=== PATIENT | female | born 1995 | race Caucasian/White ===

== ENCOUNTER 2023-08-22 09:45 | Inpatient (IN) | payer BC, SELFPAY ==
[2023-08-22] VITALS (17 sets, daily range): BP systolic 105–149; BP diastolic 60–96; PULSE 94–116; RESP 16–21; TEMP 36.4–37.1; O2SAT 96–100; BMI 53.2
--- NOTE | 2023-08-22 07:53 | PCM.HP.BLA ---
History and Physical Date of Admission: 08/22/23 DATE OF SERVICE: August 18, 2023 ? PROBLEM: breech presentation, 39 week gestation, single IUP ? DIAGNOSIS: as above ? PAST SURGICAL HISTORY: PAST SURGICAL HISTORYExpand by Default PAST SURGICAL HISTORY Procedure Laterality Date ? PAST SURGICAL HISTORY OF ? ? ? wisdom teeth ? ? PAST MEDICAL HISTORY: PAST MEDICAL HISTORYExpand by Default PAST MEDICAL HISTORY Diagnosis Date ? NEGATIVE MEDICAL HISTORY ? ? Obesity, unspecified ? ? ? SUBJECTIVE: pt doing well and offers no complaints today. No regular ctx, vb, lof. Good FM ? SOCIAL HISTORY: SOCIAL HISTORYExpand by Default Social History ? Tobacco Use ? Smoking status: Never ? Smokeless tobacco: Never Vaping Use ? Vaping Use: Never used Substance Use Topics ? Alcohol use: No ? Drug use: No ? ? Allergies: Penicillins Other: See Comments Comment:Unknown - allergy as baby ? Current Outpatient Medications on File Prior to Visit Medication Sig ? ferrous sulfate (IRON ORAL) Take by mouth. ? ZINC ORAL Take by mouth. ? VIT [id number] ORAL Take by mouth. ? No current facility-administered medications on file prior to visit. ? OBJECTIVE: ? VITALS: BP 125/83 Pulse 101 Wt (!) 321 lb 9.6 oz (145.9 kg) LMP 11/22/2022 (Exact Date) SpO2 98% BMI 51.68 kg/m? ? HEENT: Normocephalic, atraumatic, Mucus membranes moist without lesions. ? NECK: Soft and Supple. No adenopathy , thyromegaly or bruits. ? SKIN: No lesions. ? CHEST: No increased resp effort. ? HEART: Regular rate. ? ABDOMEN: Soft, non-tender, non-distended, no masses, no hepatosplenomegaly. ? LOWER EXTREMITIES: No palpable cords and no skin changes. ? ? ? ASSESSMENT: pre op, 39 week gestation, single IUP, breech presentation ? PLAN: 1) Discussed r/b/a section for breech presentation. The rationale for the proposed surgery was discussed in addition to risks, benefits, and alternatives. General pre- and post-operative care was reviewed. Questions were answered. After discussion, the patient indicated a desire to proceed with the planned surgery. ? Nelida Maxwell, DO Assessment & Plan Assessment/Plan (1) 39 weeks gestation of : (2) Breech presentation: (3) Obesity affecting : (4) Two vessel umbilical cord:
--- OUTSIDE RECORDS SUMMARY | 2023-08-22 10:29 | XMS RPT_ITS | CCD ---
Author Name Unknown Address [address] [place] [address] Organization [facility] Care Team Providers Care Machine Hose Cutter Name Role Phone Pcp, No Primary Care Provider Unavailabl e Unavailable Primary Care Provider Unavailabl e Unavailable Primary Care Provider Unavailabl e CAL, ABA L Referring Unavailable CAL, ABA L Referring Unavailable WISWELL, STEPAN Attending Unavailable PLOTTS, KARINA Referring Unavailable CAL, ABA L Attending Unavailable PLOTTS, KARINA Referring Unavailable PLOTTS, KARINA Referring Unavailable CAL, ABA L Referring Unavailable WISWELL, STEPAN Attending Unavailable CAL, ABA L Referring Unavailable CAL, ABA L Referring Unavailable CAL, ABA L Attending Unavailable CAL, ABA L Referring Unavailable WISWELL, STEPAN Attending Unavailable PLOTTS, KARINA Referring Unavailable JONATHAN RODRIGUEZ Attending Unavail able WISSTEPAN BARNES Attending Unavailable CAL, ABA L Referring Unavailable CAL, ABA L Attending Unavailable MAT GUIDO Attending Unavailable PLOTTS, KARINA Attending Unavailable CLA, ABA L Referring Unavailable PLOTTS, KARINA Referring Unavailable PLOTTS, KARINA Attending Unavailable PLOTTS, KARINA Referring Unavailable CAL, ABA L Referring Unavailable WISWELL, STEPAN Attending Unavailable CAL, ABA L Referring Unavailable CAL, ABA L Referring Unavailable JONATHAN RODRIGUEZ Attending Unavail able WISWELL, STEPAN Attending Unavailable WISWELL, STEPAN Referring Unavailable Allergies Allergy Classification Reported Allergen(s) Allergy Type Date of Onset Reaction(s) Facility (2 sources) Penicillins; Translations: [PENICILLINS] Propensity to adverse reactions 6 [facility] Work Phone: (20 sources) Penicillins Propensity to adverse reactions 6 Other: See Comments [facility] Work Phone: Medications Current Medications Medication Drug Class(es) Dates Sig (Normalized) Sig (Original) ondansetron 4 mg disintegrating oral tablet (1 source) Serotonin-3 Receptor Antagonist Start: 10-20-2021 End: 10-25-2021 take 1 tablet by mouth every twelve hours as needed ondansetron orally disintegrating (ZOFRAN ODT) 4 mg disintegrating tablet Take 1 tablet by mouth every 12 hours as needed for nausea/vomiting for up to 5 days. 10 tablet 0 10/20/2021 10/25/2021 Active Completed/Discontinued Medications Medication Drug Class(es) Dates Sig (Normalized) Sig (Original) Ethinyl Estradiol / Ferrous fumarate / Norethindrone (7 sources) Estrogen Start: 04-01-2022 End: 02-18-2023 take 1 tablet by mouth once daily, then take 0.05 tablet by mouth once Norethin Sam-Eth Estrad-FE (LOESTRIN FE 07/19) 1 mg-20 mcg (21)/75 mg (7) per tablet Indications: Encounter for initial prescription of contraceptive pills Take 1 tablet by mouth once daily. 28 tablet 11 04/01/2022 02/18/2023 Discontinued Problems Active Problems Problem Classification Problem Date Documented Da te Episodic/Chronic Bacterial infection; unspecified site (4 sources) Bacteria present; Translations: [Streptococcus, group B, as the cause of diseases classified elsewhere] Onset: 08-07-2023 08-07-2023 Episodic Cardiac and circulatory congenital anomalies (5 sources) Single umbilical artery; Translations: [Congenital absence and hypoplasia of umbilical artery] Onset: 07-07-2023 05-12-2023 Chronic Contraceptive and procreative management (7 sources) Patient encounter status; Translations: [Encounter for initial prescription of contraceptive pills] Episodic Immunizations and screening for infectious disease (20 sources) Requires vaccination; Translations: [Encounter for immunization] Onset: 02-01-2009 02-01-2009 Episodic Malposition; malpresentation (5 sources) Breech presentation; Translations: [Maternal care for breech presentation, not applicable or unspecified] Onset: 08-11-2023 08-11-2023 Episodic Other complications of (20 sources) Obesity; Translations: [Obesity complicating , unspecified trimester] Onset: 01-16-2023 01-16-2023 Chronic Other complications of (2 sources) Maternal obesity complicating , childbirth and the puerperium, antepartum; Translations: [Obesity complicating , second trimester] 04-14-2023 Chronic Other complications of (2 sources) Obesity complicating , third trimester; Translations: [Obesity complicating , childbirth, or the puerperium, antepartum condition or complication] Onset: 08-12-2023 06-09-2023 Chronic Other complications of (1 source) Obesity complicating , second trimester; Translations: [Obesity affecting in second trimester, unspecified obesity type] Onset: 07-07-2023 Chronic Other complications of (1 source) Obesity complicating , unspecified trimester; Translations: [Obesity in , antepartum] Onset: 01-16-2023 Chronic Other complications of (7 sources) on oral contraceptive; Translations: [Supervision of other high risk pregnancies, unspecified trimester] Onset: 01-16-2023 01-16-2023 Episodic Other complications of (3 sources) High risk ; Translations: [Supervision of other high risk pregnancies, third trimester] 06-09-2023 Episodic Other complications of (1 source) Supervision of other high risk pregnancies, third trimester; Translations: [Supervision of other high risk pregnancies, third trimester] Onset: 07-07-2023 Episodic Polyhydramnios and other problems of amniotic cavity (8 sources) Polyhydramnios; Translations: [Polyhydramnios, third trimester, not applicable or unspecified] Onset: 07-10-2023 07-10-2023 Episodic Residual codes; unclassified (2 sources) Gestation period, 9 weeks; Translations: [9 weeks gestation of ] 01-27-2023 Episodic Residual codes; unclassified (1 source) Gestation period, 12 weeks; Translations: [12 weeks gestation of ] 02-18-2023 Episodic Residual codes; unclassified (2 sources) Gestation period, 20 weeks; Translations: [20 weeks gestation of ] 04-14-2023 Episodic Residual codes; unclassified (2 sources) Gestation period, 24 weeks; Translations: [24 weeks gestation of ] 05-12-2023 Episodic Residual codes; unclassified (1 source) Gestation period, 28 weeks; Translations: [28 weeks gestation of ] 06-09-2023 Episodic Residual codes; unclassified (1 source) Gestation period, 36 weeks; Translations: [36 weeks gestation of ] 08-11-2023 Episodic Residual codes; unclassified (1 source) Gestation period, 37 weeks; Translations: [37 weeks gestation of ] 08-12-2023 Episodic Residual codes; unclassified (1 source) 32 weeks gestation of ; Translations: [32 weeks gestation of ] Onset: 07-07-2023 Episodic Residual codes; unclassified (1 source) 24 weeks gestation of ; Translations: [24 weeks gestation of ] Onset: 06-09-2023 Episodic Past or Other Problems Problem Classification Problem Date Documented Da te Episodic/Chronic Other complications of (15 sources) Single umbilical artery; Translations: [Supervision of other high risk pregnancies, unspecified trimester] Onset: 01-16-2023 04-14-2023 Episodic Other complications of (1 source) Supervision of other high risk pregnancies, unspecified trimester; Translations: [Two vessel umbilical cord, antepartum] Onset: 04-14-2023 Episodic Other nutritional; endocrine; and metabolic disorders (20 sources) Childhood obesity; Translations: [Body mass index (BMI) pediatric, greater than or equal to 95th percentile for age] Onset: 01-25-2010 01-25-2010 Episodic Other and delivery including normal (5 sources) First trimester ; Translations: [Encounter for supervision of normal first , first trimester] Onset: 02-18-2023 01-27-2023 Episodic Other screening for suspected conditions (not mental disorders or infectious disease) (2 sources) Cancer cervix screening status; Translations: [Encounter for screening for malignant neoplasm of cervix] Onset: 05-12-2023 Episodic Residual codes; unclassified (1 source) 16 weeks gestation of ; Translations: [16 weeks gestation of ] Onset: 03-17-2023 Episodic Residual codes; unclassified (1 source) 9 weeks gestation of ; Translations: [9 weeks gestation of ] Onset: 02-18-2023 Episodic Residual codes; unclassified (1 source) 12 weeks gestation of ; Translations: [12 weeks gestation of ] Onset: 02-18-2023 Episodic Results Test Name Value Interpretation Reference Range Facil ity Vital Signs Date Time Vital Sign Value Performing Clinician Faci lity 08-12-2023 13:55-0500 Body weight 146.06 kg Aba Mccall MD Work Phone: [facility] 08-12-2023 13:55-0500 Diastolic blood pressure 82 mm[Hg] Aba Mccall MD Work Phone: [facility] 08-12-2023 13:55-0500 Systolic blood pressure 132 mm[Hg] Aba Mccall MD Work Phone: [facility] 08-04-2023 13:51-0500 Body weight 143.61 kg Stepan Maxwell MD Work Phone: [facility] 08-04-2023 13:51-0500 Diastolic blood pressure 82 mm[Hg] Stepan Maxwell MD Work Phone: [facility] 08-04-2023 13:51-0500 Systolic blood pressure 120 mm[Hg] Stepan Maxwell MD Work Phone: [facility] 06-09-2023 09:59-0500 Body weight 141.7 kg Aba Mccall MD Work Phone: [facility] 06-09-2023 09:59-0500 Diastolic blood pressure 78 mm[Hg] Aba Mccall MD Work Phone: [facility] 06-09-2023 09:59-0500 Systolic blood pressure 120 mm[Hg] Aba Mccall MD Work Phone: [facility] 05-12-2023 14:51-0500 Body weight 139.53 kg Aba Mccall MD Work Phone: [facility] 05-12-2023 14:51-0500 Diastolic blood pressure 80 mm[Hg] Aba Mccall MD Work Phone: [facility] 05-12-2023 14:51-0500 Systolic blood pressure 120 mm[Hg] Aba Mccall MD Work Phone: [facility] 04-14-2023 11:13-0400 Body weight 135.17 kg Jonathan Reynoso MD Work Phone: [facility] 04-14-2023 11:13-0400 Diastolic blood pressure 76 mm[Hg] Jonathan Reynoso MD Work Phone: [facility] 04-14-2023 11:13-0400 Systolic blood pressure 126 mm[Hg] Jonathan Reynoso MD Work Phone: [facility] 02-18-2023 15:11-0400 Body weight 134.72 kg Aba Mccall MD Work Phone: [facility] 02-18-2023 15:11-0400 Diastolic blood pressure 78 mm[Hg] Aba Mccall MD Work Phone: [facility] 02-18-2023 15:11-0400 Systolic blood pressure 124 mm[Hg] Aba Mccall MD Work Phone: [facility] 01-27-2023 08:51-0400 Body weight 133.81 kg Karina Moreno CHARM FILTER OPERATOR HELPER.CNM Work Phone: [facility] 01-27-2023 08:51-0400 Diastolic blood pressure 76 mm[Hg] Karina Plotts CHARM FILTER OPERATOR HELPER.CNM Work Phone: [facility] 01-27-2023 08:51-0400 Systolic blood pressure 122 mm[Hg] Karina Plotts CHARM FILTER OPERATOR HELPER.CNM Work Phone: [facility] 05-06-2022 10:58-0500 Body weight 130.91 kg Stepan Maxwell MD Work Phone: [facility] 05-06-2022 10:58-0500 Diastolic blood pressure 80 mm[Hg] Stepan Maxwell MD Work Phone: [facility] 05-06-2022 10:58-0500 Systolic blood pressure 120 mm[Hg] Stepan Maxwell MD Work Phone: [facility] 04-01-2022 09:23-0400 Body height 168 cm Stepan Maxwell MD Work Phone: [facility] 04-01-2022 09:23-0400 Body weight 132 kg Stepan Maxwell MD Work Phone: [facility] 04-01-2022 09:23-0400 Diastolic blood pressure 80 mm[Hg] Stepan Maxwell MD Work Phone: [facility] 04-01-2022 09:23-0400 Systolic blood pressure 120 mm[Hg] Stepan Maxwell MD Work Phone: [facility] Encounters Encounter Date Encounter Type Care Provider Facility Start: 08-18-2023 End: 08-18-2023 ambulatory ABA MCCALL Facility:[facility] Start: 08-18-2023 Telephone encounter Stepan jones MD Work Phone: OB/Gynecology Procedures Date Procedure Procedure Detail Performing Clinician Start: 08-12-2023 URINE OB DIP B/O Fouzia Mccall MD Work Phone: Start: 08-04-2023 Iadna streptococcus group b amplified probe tq Stepan Maxwell MD Work Phone: Start: 08-04-2023 URINE OB DIP B/O Stepan franco MD Work Phone: Start: 08-04-2023 Us preg uterus after 1st trimest 06/30 gestation Aba Mccall MD Work Phone: Start: 06-09-2023 Antibody screen ABA MCCALL Plan of Treatment Date Care Activity Detail Author Start: 06-09-2033 Urine microalbumin profile DTaP,Tdap,Td Vaccine (8 - Td or Tdap) [facility] Start: 04-01-2025 PAP TESTING PAP TESTING [facility] Start: 04-01-2025 Screening for malign ant neoplasm of cervix Pap Testing [facility] Start: 07-04-2023 RSV Vaccine (1 - Ris k 1-dose series) RSV Vaccine (1 - Risk 1-dose series) [facility] Start: 06-30-2023 Depression Assessment Depression Ass essment [facility] Start: 06-11-2023 End: 09-10-2023 CBC W Auto Differential panel - Blood CBC + DIFF Lab Routine 24 weeks gestation of Two vessel umbilical cord, antepartum Obesity in , antepartum Expected: 06/11/2023 (Approximate), Expires: 09/10/2023 [facility] Work Phone: Immunizations Immunization Date Immunization Notes Care Provider Jasmina jovel 07-07-2023 respiratory syncytia l virus (RSV) vaccine, bivalent (ABRYSVO) Ob Ultrasound Work Phone: [facility] 06-09-2023 tetanus toxoid, redu franko diphtheria toxoid, and acellular pertussis vaccine, adsorbed Aba Mccall MD Work Phone: [facility] 05-12-2023 influenza, injectabl e, quadrivalent, contains preservative Aba Mccall MD Work Phone: [facility] 06-03-2022 Human Papillomavirus 9-valent vaccine Karina Moreno CHARM FILTER OPERATOR HELPER.CNM Work Phone: [facility] 04-01-2022 Human Papillomavirus 9-valent vaccine Stepan Maxwell MD Work Phone: [facility] 01-11-2011 tetanus toxoid, redu franko diphtheria toxoid, and acellular pertussis vaccine, adsorbed Gracy Hager CHARM FILTER OPERATOR HELPER.PROCESS CONTROLS TECHNICIAN Work Phone: [facility] Work Phone: 01-25-2010 varicella virus vaccine Jaiden Hager CHARM FILTER OPERATOR HELPER.PROCESS CONTROLS TECHNICIAN Work Phone: [facility] 02-01-2009 meningococcal polysaccharide vaccine (MPSV4) Gracy Hager CHARM FILTER OPERATOR HELPER.PROCESS CONTROLS TECHNICIAN Work Phone: [facility] Work Phone: 02-01-2009 varicella virus vaccine Jaiden julius Hager CHARM FILTER OPERATOR HELPER.PROCESS CONTROLS TECHNICIAN Work Phone: [facility] Work Phone: 12-23-2000 diphtheria, tetanus toxoids and acellular pertussis vaccine Gracy Hager CHARM FILTER OPERATOR HELPER.PROCESS CONTROLS TECHNICIAN Work Phone: [facility] Work Phone: 12-23-2000 measles, mumps and rubella virus vaccine Gracy Hager CHARM FILTER OPERATOR HELPER.PROCESS CONTROLS TECHNICIAN Work Phone: [facility] Work Phone: 12-23-2000 poliovirus vaccine, inactivated Gracy Alley CHARM FILTER OPERATOR HELPER.PROCESS CONTROLS TECHNICIAN Work Phone: [facility] Work Phone: 11-19-1996 diphtheria, tetanus toxoids and acellular pertussis vaccine Gracy Alley CHARM FILTER OPERATOR HELPER.PROCESS CONTROLS TECHNICIAN Work Phone: [facility] Work Phone: 11-19-1996 poliovirus vaccine, inactivated Gracy Alley CHARM FILTER OPERATOR HELPER.PROCESS CONTROLS TECHNICIAN Work Phone: [facility] Work Phone: 08-17-1996 haemophilus influenz ae type b vaccine, HbOC conjugate Gracy Alley CHARM FILTER OPERATOR HELPER.[facility] Work Phone: [facility] Work Phone: 08-17-1996 measles, mumps and rubella virus vaccine Gracy Alley CHARM FILTER OPERATOR HELPER.[facility] Work Phone: [facility] Work Phone: 1995 diphtheria, tetanus toxoids and pertussis vaccine Gracy Alley CHARM FILTER OPERATOR HELPER.[facility] Work Phone: [facility] Work Phone: 1995 haemophilus influenz ae type b vaccine, HbOC conjugate Gracy Alley CHARM FILTER OPERATOR HELPER.[facility] Work Phone: [facility] Work Phone: 1995 hepatitis B vaccine, adult dosage Gracy Alley CHARM FILTER OPERATOR HELPER.PROCESS CONTROLS TECHNICIAN Work Phone: [facility] Work Phone: 1995 diphtheria, tetanus toxoids and pertussis vaccine Gracy Alley CHARM FILTER OPERATOR HELPER.[facility] Work Phone: [facility] Work Phone: 1995 haemophilus influenz ae type b vaccine, HbOC conjugate Gracy Alley CHARM FILTER OPERATOR HELPER.[facility] Work Phone: [facility] Work Phone: 1995 poliovirus vaccine, inactivated Gracy Alley CHARM FILTER OPERATOR HELPER.PROCESS CONTROLS TECHNICIAN Work Phone: [facility] Work Phone: 1995 diphtheria, tetanus toxoids and pertussis vaccine Gracywarren Riverak CHARM FILTER OPERATOR HELPER.PROCESS CONTROLS TECHNICIAN Work Phone: [facility] Work Phone: 1995 haemophilus influenz ae type b vaccine, HbOC conjugate Gracy Alley CHARM FILTER OPERATOR HELPER.PROCESS CONTROLS TECHNICIAN Work Phone: [facility] Work Phone: 1995 poliovirus vaccine, inactivated Gracy Alley CHARM FILTER OPERATOR HELPER.PROCESS CONTROLS TECHNICIAN Work Phone: [facility] Work Phone: 1995 hepatitis B vaccine, adult dosage Gracy Alley CHARM FILTER OPERATOR HELPER.PROCESS CONTROLS TECHNICIAN Work Phone: [facility] Work Phone: 1995 hepatitis B vaccine, adult dosage Gracy Alley CHARM FILTER OPERATOR HELPER.[facility] Work Phone: [facility] Work Phone: Payers Date Payer Category Payer Unknown [id number] 2021 Unknown [employer] [id number] 2021-Present [phone] [address] [place] [id number] [facility] [id number] 2021 Unknown [id number] Social History Date Type Detail Facility Start: 04-01-2022 Tobacco smoking stat [facility] Never smoked tobacco [facility] Work Phone: Start: 10-20-2021 End: 08-18-2023 Alcohol intake Current non-drinker of alcohol (finding) [facility] Start: 1995 Sex Assigned At Not on file [facility] Start: 10-12-2021 End: 05-06-2022 Exposure to SARS-CoV-2 (event) Not sure [facility] Work Phone: Start: 04-01-2022 Tobacco use and exposure Smokeless tobacco non-user [facility] Start: 1995 Sex Assigned At Female C [facility] Start: 01-16-2023 End: 08-18-2023 History of Social function [facility] Start: 01-16-2023 End: 08-18-2023 Tobacco use panel [facility] National Score (1-10 0), lower number is lower risk 66 [facility] Start: 01-16-2023 Education 17 [facility] Start: 12-06-2022 [facility] Start: 03-31-2022 Gender identity Identifies as female gender (finding) [facility] Start: 03-31-2022 Sexual orientation Heterosexual (fin walter) [facility] Goals Date Patient Goal Desired Activity /State Personal health goal Clinical Notes 10-25-2021 to 08-18-2023 Telephone Encounter - Gisele An LPN - 08/18/2023 1:41 PM ESTTelephone Encounter - Nithya Law RN - 08/18/2023 10:44 AM Aba Guerra MD - 08/12/2023 2:10 PM EST Note Date & Type Note Facility 08-18-2023 Miscellaneous Notes Patient notified Left message for patient to call office. Please let patient know her C/S on 08/22 is now at noon. Please have her arrive at 0930 to L&D. Nithya Law RN documented in this encounter [facility] 08-12-2023 Note HNO ID: [id number] Author: ABA MCCALL MD Service: ? Author Type: Physician Type: Progress Notes Filed: 08/12/2023 14:27 Note Text: NST SUMMARY PROVIDER ASSESSMENT AND INTERPRETATION Abahamida Friend is a 28 year old female, , who is at 37w4d with an FRANK of 08/29/2023, by Last Menstrual Period dating method. Indications for NST: Obesity Baseline: 135 Variability: Moderate Accelerations: Present 15 X 15 Decelerations: None Contractions: TOCO: None Interpretation: Category I and Reactive SIGNATURE: Aba Mccall MD [facility] 08-12-2023 History of Presen t illness Narrative NST SUMMARY PROVIDER ASSESSMENT AND INTERPRETATION Aba Friend is a 28 year old female, , who is at 37w4d with an FRANK of 08/29/2023, by Last Menstrual Period dating method. Indications for NST: Obesity Baseline: 135 Variability: Moderate Accelerations: Present 15 X 15 Decelerations: None Contractions: TOCO: None Interpretation: Category I and Reactive SIGNATURE: Aba Mccall MD documented in this encounter [facility] 08-12-2023 Miscellaneous Notes RR- VB No. LOF No. CTXS No. Movement: present. Other c/o: No. Medication list reviewed. Physical Exam See Flow Sheet Abd: soft, nontender, gravid Ext: edema: Trace A/P 37w4d Estimated Date of Delivery: 08/29/23 maternal obesity- BP stable, NST today. cont. kick counts Plans c/s for breech F/u in 1 week or prn. Aba Mccall M.D. documented in this encounter [facility] 08-12-2023 Aretha Vincent Ma - 08/12/2023 1:53 PM EST SEQUENTIAL SCREENINGS The [facility] offers sequential screenings for women who are interested in screenings for chromosomal abnormalities and certain defects during a . The sequential screen combines ultrasound and blood tests to determine the risk of chromosomal abnormalities, including Down's Syndrome (Trisomy 21) and Trisomy 18, as well as open neural tube defects including spina bifida. Ultrasound examination is performed between 11 weeks and 13 weeks gestational age. Blood tests are drawn after the ultrasound and again later in the between 15 and 21 weeks gestational age. Please let your physician know if you are interested in this testing. It will require an appointment with our windows deployment technician. This is not an ultrasound performed by a physician in our office during a routine visit. SIGNS AND SYMPTOMS OF LABOR 1. Contractions every 10 minutes or more often 2. Clear, pink, or brownish fluid (water) leaking from vagina 3. Feeling that baby is pushing down, pressure 4. Low, dull backache 5. Cramps that feel like a period 6. Cramps with or without diarrhea If you notice any of the above symptoms, contact our office at [phone] and ask to speak with a nurse. After hours, you can call doctors registry at [phone] OR call [facility] at [phone] and ask to have the doctor personal development coach paged. If you consider this an emergency, dial 9-1-9 or go to your nearest emergency department. NEED HELP? Are you dealing with a violent or abusive relationship? Are you a victim of rape or sexual assult? Call [facility] [place] ([place]) 24 hour Crisis Hotline: 285.401.5978 or 174-780-8971. MANUAL Your Guide to a Healthy manual is now on-line. Visit [email or web address] to download your free copy documented in this encounter [facility] 08-11-2023 Miscellaneous Notes SW- pt doing well. No pain, ctx, CHE, vision changes, vb, lof. Good FM PE: Gen- NAD, well appearing Abd- Obese, breech and engaged in pelvis See flowsheet A/p 36 wk gestation - Breech: Discussed r/b/a ECV and scheduled primary C/S. Patient and would like to consider options but she is wanting to get a scheduled at 39 weeks. Questions answered - Growth ultrasound today and final report pending - BPP 02/04 today - Cont weekly visits. Will work on scheduling C/S Stepan Maxwell DO documented in this encounter [facility] 08-04-2023 Miscellaneous Notes Anatomy ultrasound reviewed. No abnormalities identified. Follow up as clinically indicated. Please place copy in ob chart. Aba Mccall MD documented in this encounter [facility] 08-04-2023 Instructions Stepan Maxwell MD - 08/04/2023 1:46 PM EST [facility] SEQUENTIAL SCREENINGS The [facility] offers sequential screenings for women who are interested in screenings for chromosomal abnormalities and certain defects during a . The sequential screen combines ultrasound and blood tests to determine the risk of chromosomal abnormalities, including Down's Syndrome (Trisomy 21) and Trisomy 18, as well as open neural tube defects including spina bifida. Ultrasound examination is performed between 11 weeks and 13 weeks gestational age. Blood tests are drawn after the ultrasound and again later in the between 15 and 21 weeks gestational age. Please let your physician know if you are interested in this testing. It will require an appointment with our windows deployment technician. This is not an ultrasound performed by a physician in our office during a routine visit. SIGNS AND SYMPTOMS OF LABOR 1. Contractions every 10 minutes or more often 2. Clear, pink, or brownish fluid (water) leaking from vagina 3. Feeling that baby is pushing down, pressure 4. Low, dull backache 5. Cramps that feel like a period 6. Cramps with or without diarrhea If you notice any of the above symptoms, contact our office at [phone] and ask to speak with a nurse. After hours, you can call doctors registry at [phone] OR call [facility] at [phone] and ask to have the doctor personal development coach paged. If you consider this an emergency, dial [phone]- or go to your nearest emergency department. NEED HELP? Are you dealing with a violent or abusive relationship? Are you a victim of rape or sexual assult? Call [facility] ([place]) 24 hour Crisis Hotline: 901.862.6092 or 797-018-9933. MANUAL Your Guide to a Healthy manual is now on-line. Visit [email or web address] to download your free copy documented in this encounter [facility] 07-21-2023 Note HNO ID: [id number] Author: ABA MCCALL MD Service: ? Author Type: Physician Type: Progress Notes Filed: 07/21/2023 14:06 Note Text: NST SUMMARY PROVIDER ASSESSMENT AND INTERPRETATION Aba Friend is a 28 year old female, , who is at 34w3d with an FRANK of 08/29/2023, by Last Menstrual Period dating method. Indications for NST: Obesity and Polyhydramnios Baseline: 145 Variability: Moderate Accelerations: Present 15 X 15 Decelerations: None Contractions: TOCO: None Interpretation: Category I and Reactive SIGNATURE: Aba Mccall MD [facility] 07-16-2023 Note HNO ID: [id number] Author: JONATHAN RODRIGUEZ MD Service: ? Author Type: Physician Type: Progress Notes Filed: 07/16/2023 16:13 Note Text: NST SUMMARY PROVIDER ASSESSMENT AND INTERPRETATION Aba Friend is a 28 year old female, , who is at 33w5d with an FRANK of 08/29/2023, by Last Menstrual Period dating method. Indications for NST: Obesity Baseline: 145 Variability: Moderate Accelerations: Present 15 X 15 Decelerations: None Contractions: TOCO: None Interpretation: Category I and Reactive SIGNATURE: Jonathan Dietrich MD [facility] 07-07-2023 Note HNO ID: [id number] Author: MAGDA GUIDO APRN.PROCESS CONTROLS TECHNICIAN Service: ? Author Type: Nurse Practitioner Type: Progress Notes Filed: 07/07/2023 15:18 Note Text: Subjective Patient came in with complaints of a painful rash on her abdomen and between thighs. Patient says she just did spend a week in [place] and had some retreat for work with lots of walking. Patient is 32 weeks . Denies any fever chills nausea vomiting. The history is provided by the patient. No digital print operator was used. Rash Review of Systems Constitutional: Negative. Skin: Positive for rash. Objective Physical Exam Constitutional: Appearance: Normal appearance. Pulmonary: Effort: Pulmonary effort is normal. Skin: Comments: Patient has raised erythematous rash in the area marked above. No signs of drainage. Neurological: Mental Status: She is alert. PAST MEDICAL HISTORY Diagnosis Date NEGATIVE MEDICAL HISTORY Obesity, unspecified PAST SURGICAL HISTORY Procedure Laterality Date PAST SURGICAL HISTORY OF wisdom teeth ALLERGIES Penicillins MEDICATIONS ferrous sulfate (IRON ORAL) Take by mouth. ZINC ORAL Take by mouth. VIT [id number] ORAL Take by mouth. nystatin (MYCOSTATIN) cream Apply to affected area two times a day for 14 days. FAMILY HISTORY Problem Relation Age of Onset Skin Cancer Mother Hypertension Father Prostate Cancer Father Parkinson?s Disease Father Asthma Maternal Grandmother Coronary Artery Disease Maternal Grandfather [place] age 62 Diabetes Paternal Grandmother Emphysema Paternal Grandfather Social History Tobacco Use Smoking status: Never Smokeless tobacco: Never Vaping Use Vaping Use: Never used Substance Use Topics Alcohol use: No Drug use: No ASSESSMENT/PLAN: 1. Rash - ICD9: 782.1, ICD10: R21 - [place]STATIN 100,000 UNIT/GRAM TOPICAL CREAM She was instructed about proper use of medication and supportive therapies. Patient instructed of signs and symptoms do not improve with medication that they need to follow-up with primary provider. Patient was okay with this care plan. Magda Guido APRN.[facility] 06-19-2023 Miscellaneous Notes Please see pt's [facility] [employer] message and advise further. Vivian Santiago LPN documented in this encounter [facility] 06-09-2023 Note HNO ID: [id number] Author: Roula Prakash MA Service: ? Author Type: Junior Engineer Type: Progress Notes Filed: 06/09/2023 11:51 AM Note Text: Patient identified by name and date of . Aba Friend presents today for a vaccination of Tdap. Patient denies an allergy to latex: yes Patient denies a severe (life-threatening) allergy to a previous dose of Tdap, DTP, DTaP, DT or Td vaccine. Yes Patient denies history of epilepsy or neurological problems: Yes Patient is afebrile and denies being moderately or severely ill: Yes Patient denies history of Guillain-[place] Syndrome (a severe paralytic illness): Yes Tdap Adacel injection was given without incident. See immunizations for details of immunizations administered today. VIS sheet provided: Yes Provider Aab Mccall MD was present in office at time of injection. Roula Prakash MA [facility] 06-09-2023 Miscellaneous Notes RR- VB No. LOF No. CTXS No. Movement: present. Other c/o: No. Medication list reviewed. Physical Exam See Flow Sheet Abd: soft, nontender, gravid Ext: edema: Trace A/P 28w3d Estimated Date of Delivery: 08/29/23 Labs: declines LARC at delivery likely will do pills 32 week and on growth scans ordered declines echo Aba Mccall M.D. documented in this encounter [facility] 06-09-2023 History of Presen t illness Narrative Patient identified by name and date of . Aba J Phuc presents today for a vaccination of Tdap. Patient denies an allergy to latex: yes Patient denies a severe (life-threatening) allergy to a previous dose of Tdap, DTP, DTaP, DT or Td vaccine. Yes Patient denies history of epilepsy or neurological problems: Yes Patient is afebrile and denies being moderately or severely ill: Yes Patient denies history of Guillain-[place] Syndrome (a severe paralytic illness): Yes Tdap Adacel injection was given without incident. See immunizations for details of immunizations administered today. VIS sheet provided: Yes Provider Aba Mccall MD was present in office at time of injection. Roula Prakash MA documented in this encounter [facility] 06-09-2023 Instructions Roula Prakash MA - 06/09/2023 9:53 AM EST SEQUENTIAL SCREENINGS The [facility] offers sequential screenings for women who are interested in screenings for chromosomal abnormalities and certain defects during a . The sequential screen combines ultrasound and blood tests to determine the risk of chromosomal abnormalities, including Down's Syndrome (Trisomy 21) and Trisomy 18, as well as open neural tube defects including spina bifida. Ultrasound examination is performed between 11 weeks and 13 weeks gestational age. Blood tests are drawn after the ultrasound and again later in the between 15 and 21 weeks gestational age. Please let your physician know if you are interested in this testing. It will require an appointment with our windows deployment technician. This is not an ultrasound performed by a physician in our office during a routine visit. SIGNS AND SYMPTOMS OF LABOR 1. Contractions every 10 minutes or more often 2. Clear, pink, or brownish fluid (water) leaking from vagina 3. Feeling that baby is pushing down, pressure 4. Low, dull backache 5. Cramps that feel like a period 6. Cramps with or without diarrhea If you notice any of the above symptoms, contact our office at [phone] and ask to speak with a nurse. After hours, you can call doctors registry at [phone] OR call [facility] at [phone] and ask to have the doctor personal development coach paged. If you consider this an emergency, dial 3-1-8 or go to your nearest emergency department. NEED HELP? Are you dealing with a violent or abusive relationship? Are you a victim of rape or sexual assult? Call [facility] ([place]) 24 hour Crisis Hotline: 776.907.2247 or 370-455-4732. MANUAL Your Guide to a Healthy manual is now on-line. Visit [email or web address] to download your free copy documented in this encounter [facility] 05-12-2023 Miscellaneous Notes RR- VB No. LOF No. CTXS No. Movement: present. Other c/o: No. Medication list reviewed. Physical Exam See Flow Sheet Abd: soft, nontender, gravid Ext: edema: Trace A/P 24w3d Estimated Date of Delivery: 08/29/23 Labs: 28 week labs next visit f/u US today flu vaccine today Growth scans at 32 weeks due to maternal obesity Aba Mccall M.D. documented in this encounter [facility] 05-12-2023 Instructions Roula Prakash MA - 05/12/2023 2:37 PM EST SEQUENTIAL SCREENINGS The [facility] offers sequential screenings for women who are interested in screenings for chromosomal abnormalities and certain defects during a . The sequential screen combines ultrasound and blood tests to determine the risk of chromosomal abnormalities, including Down's Syndrome (Trisomy 21) and Trisomy 18, as well as open neural tube defects including spina bifida. Ultrasound examination is performed between 11 weeks and 13 weeks gestational age. Blood tests are drawn after the ultrasound and again later in the between 15 and 21 weeks gestational age. Please let your physician know if you are interested in this testing. It will require an appointment with our windows deployment technician. This is not an ultrasound performed by a physician in our office during a routine visit. SIGNS AND SYMPTOMS OF LABOR 1. Contractions every 10 minutes or more often 2. Clear, pink, or brownish fluid (water) leaking from vagina 3. Feeling that baby is pushing down, pressure 4. Low, dull backache 5. Cramps that feel like a period 6. Cramps with or without diarrhea If you notice any of the above symptoms, contact our office at [phone] and ask to speak with a nurse. After hours, you can call doctors registry at [phone] OR call [facility] at [phone] and ask to have the doctor personal development coach paged. If you consider this an emergency, dial -2 or go to your nearest emergency department. NEED HELP? Are you dealing with a violent or abusive relationship? Are you a victim of rape or sexual assult? Call [facility] ([place]) 24 hour Crisis Hotline: 253.237.1625 or 825-124-6869. MANUAL Your Guide to a Healthy manual is now on-line. Visit [email or web address] to download your free copy documented in this encounter [facility] 04-14-2023 Miscellaneous Notes Order signed. Karina Moreno APRN.CNM Patient notified and voiced understanding. Follow up anatomy US scheduled. Please file pended order. Scarlett Pisano RN ----- Message from Karina Moreno APRN.CNM sent at 04/14/2023 4:09 PM EDT ----- Reviewed. Single umbilical artery noted. Patient seen in office. Needs follow up anatomy 2-4 weeks. Serial growth US and weekly NST's starting at 32 weeks per recommendations. Please assist patient with scheduling follow up anatomy in 4 weeks. Karina Moreno APRN.CNM documented in this encounter [facility] 04-14-2023 Miscellaneous Notes DM- Pt doing well today. Denies Vaginal Bleeding, Leaking fluid, or cramping. Anatomy us today- 2 vessel cord. RTO 4 wks. Will need growth us starting 32 weeks- did not start ASA. Jonathan Dietrich MD documented in this encounter [facility] 04-14-2023 Instructions Aretha Kwok Ma - 04/14/2023 10:21 AM EDT SEQUENTIAL SCREENINGS The [facility] offers sequential screenings for women who are interested in screenings for chromosomal abnormalities and certain defects during a . The sequential screen combines ultrasound and blood tests to determine the risk of chromosomal abnormalities, including Down's Syndrome (Trisomy 21) and Trisomy 18, as well as open neural tube defects including spina bifida. Ultrasound examination is performed between 11 weeks and 13 weeks gestational age. Blood tests are drawn after the ultrasound and again later in the between 15 and 21 weeks gestational age. Please let your physician know if you are interested in this testing. It will require an appointment with our windows deployment technician. This is not an ultrasound performed by a physician in our office during a routine visit. SIGNS AND SYMPTOMS OF LABOR 1. Contractions every 10 minutes or more often 2. Clear, pink, or brownish fluid (water) leaking from vagina 3. Feeling that baby is pushing down, pressure 4. Low, dull backache 5. Cramps that feel like a period 6. Cramps with or without diarrhea If you notice any of the above symptoms, contact our office at [phone] and ask to speak with a nurse. After hours, you can call doctors registry at [phone] OR call [facility] at [phone] and ask to have the doctor personal development coach paged. If you consider this an emergency, dial 9-1-3 or go to your nearest emergency department. NEED HELP? Are you dealing with a violent or abusive relationship? Are you a victim of rape or sexual assult? Call [facility] ([place]) 24 hour Crisis Hotline: 674.381.8905 or 725-499-6429. MANUAL Your Guide to a Healthy manual is now on-line. Visit [email or web address] [email or web address] to download your free copy documented in this encounter [facility] 02-18-2023 Miscellaneous Notes RR- No VB/LOF. Occas. nausea. NT today. D esires NIPT for aneuploidy screening. Routine labs ordered. F/u in 4 weeks or prn. Aba Mccall MD documented in this encounter [facility] 02-18-2023 Instructions Carol Ma, Lizbet - 02/18/2023 2:53 PM EDT SEQUENTIAL SCREENINGS The [facility] offers sequential screenings for women who are interested in screenings for chromosomal abnormalities and certain defects during a . The sequential screen combines ultrasound and blood tests to determine the risk of chromosomal abnormalities, including Down's Syndrome (Trisomy 21) and Trisomy 18, as well as open neural tube defects including spina bifida. Ultrasound examination is performed between 11 weeks and 13 weeks gestational age. Blood tests are drawn after the ultrasound and again later in the between 15 and 21 weeks gestational age. Please let your physician know if you are interested in this testing. It will require an appointment with our windows deployment technician. This is not an ultrasound performed by a physician in our office during a routine visit. SIGNS AND SYMPTOMS OF LABOR 1. Contractions every 10 minutes or more often 2. Clear, pink, or brownish fluid (water) leaking from vagina 3. Feeling that baby is pushing down, pressure 4. Low, dull backache 5. Cramps that feel like a period 6. Cramps with or without diarrhea If you notice any of the above symptoms, contact our office at [phone] and ask to speak with a nurse. After hours, you can call doctors registry at [phone] OR call [facility] at [phone] and ask to have the doctor personal development coach paged. If you consider this an emergency, dial 9-1-1 or go to your nearest emergency department. NEED HELP? Are you dealing with a violent or abusive relationship? Are you a victim of rape or sexual assult? Call [facility] ([place]) 24 hour Crisis Hotline: 295.313.4170 or 543-569-9879. MANUAL Your Guide to a Healthy manual is now on-line. Visit [email or web address] to download your free copy documented in this encounter [facility] 02-17-2023 Miscellaneous Notes Patient declined centering. Toño Bhatti Cma documented in this encounter [facility] 01-27-2023 Note HNO ID: [id number] Author: Karina Moreno APRN.CNM Service: ? Author Type: Acquisitions Assistant Type: Progress Notes Filed: 01/27/2023 11:42 AM Note Text: OB point of care ultrasound was performed. See imaging tab for details. Karina Moreno APRN.CNM [facility] 01-27-2023 Note HNO ID: [id number] Author: Karina Moreno APRN.CNM Service: ? Author Type: Acquisitions Assistant Type: Progress Notes Filed: 01/27/2023 10:14 AM Note Text: INITIAL OB ASSESSMENT OB Provider: Karina Moreno APRN CNM HPI: Aba is a 27 year old White Female here to establish Obstetrical Care. Patient's last menstrual period was 11/22/2022 (exact date). from OB Dating Form. Cycles regular was unplanned but accepted. Taking OCP when became She was seen at support center around 6 weeks for FHT verification Complaints: None OB History T0 L0 SAB0 IAB0 Ectopic0 Multiple0 Live Births0 Patient's Risk Screening for delivery: Have you had a prior marrufo between 20w and 36w6d?: No MEDICAL/PSYCHOSOCIAL HISTORY: History of hemorrhage or bleeding concerns: No Thyroid Disease: No History of chronic hypertension: No History of pre-existing diabetes: No No results found for: ABORHD BMI 47.41 kg/(m2) History of abnormal pap: No Prior treatment for cervical dysplasia: none. History of STDs: None Tobacco use: No Caffeine use: Yes - occasionally coffee Drug use: No Alcohol use: No Multivitamin with Folic acid: Yes Advent or heritage: No Would refuse blood transfusion if medically necessary: No Are you currently employed? 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 I don't have enough money to pay my bills: Never Within the past 12 months, have you worried that your food would run out before you had money to buy more: Never In the past 12 months, has lack of reliable transportation kept you from going to medical appointments or work, or from keeping things needed for daily living: Never In the past 12 months, have you had any concerns about having a place to live, or about the condition or quality of your housing: Never Are there any cultural or spiritual needs we should be aware of: No Depression: denies symptoms of depression. OB Depression and Anxiety Screening- This Encounter (since 01/26/2023) Over the past 2 weeks have you felt down, depressed, or hopeless? Negative Over the past two weeks, have you felt little interest or pleasure in doing things?? 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 Norethin Sam-Eth Estrad-FE (LOESTRIN FE 07/19) 1 mg-20 mcg (21)/75 mg (7) per tablet Take 1 tablet by mouth once daily. (Patient not taking: Reported on 01/16/2023) 28 tablet 11 No current facility-administered medications for this visit. Allergies As of Date: 01/27/2023 Allergen Noted Reaction PENICILLINS 05/02/2006 Fully Assessed 01/27/2023 Does patient have penicillin allergy: Yes, plan for allergy testing. REVIEW OF SYSTEMS: GENERAL: Negative for: Fever or Chills and Positive for: Fatigue HEENT: Negative for: Headache, Impaired Vision, Ringing in Ears, Nosebleeds NECK: Negative for: Swelling, Pain, Stiffness RESPIRATORY: Negative for: Cough, Shortness of breath, Wheezing GASTROINTESTINAL: Negative for: Heartburn, Constipation, Diarrhea, Blood in stool, Vomiting and Positive for: Heartburn MUSCULOSKELETAL: Negative for: Muscle or joint pain, stiffness, Joint swelling NEUROLOGIC/PSYCHIATRIC: Negative for: Weakness, Paralysis, Numbness, Tingling, Tremor, Anxiety, Depression, Memory loss SKIN: Negative for: Rash, Itching GENITOURINARY: Negative for: vaginal itching, vaginal discharge, hematuria or dysuria PHYSICAL EXAM: BP 122/76 Wt 295 lb (133.8kg) LMP 11/22/2022 GENERAL: pleasant in no apparent distress DERMATOLOGY: Normal and without lesions NECK: Supple and full range of motion CHEST: Normal inspiratory effort BREAST: soft, non-tender, symmetric, no dominant mass, normal nipple-areola (more content not included)... [facility] 01-27-2023 Miscellaneous Notes Patient is at 9.3 weeks gestation seen for NOB. See progress note. Karina Moreno APRN.CNM documented in this encounter [facility] 01-27-2023 History of Presen t illness Narrative Images from the original note were not included. INITIAL OB ASSESSMENT OB Provider: Karina Morneo APRN CNM HPI: Aba is a 27 year old White Female here to establish Obstetrical Care. Patient's last menstrual period was 11/22/2022 (exact date). from OB Dating Form. Cycles regular was unplanned but accepted. Taking OCP when became She was seen at support center around 6 weeks for FHT verification Complaints: None OB History T0 L0 SAB0 IAB0 Ectopic0 Multiple0 Live Births0 Patient's Risk Screening for delivery: Have you had a prior marrufo between 20w and 36w6d?: No MEDICAL/PSYCHOSOCIAL HISTORY: History of hemorrhage or bleeding concerns: No Thyroid Disease: No History of chronic hypertension: No History of pre-existing diabetes: No No results found for: ABORHD BMI 47.41 kg/(m^2) History of abnormal pap: No Prior treatment for cervical dysplasia: none. History of STDs: None Tobacco use: No Caffeine use: Yes - occasionally coffee Drug use: No Alcohol use: No Multivitamin with Folic acid: Yes Advent or heritage: No Would refuse blood transfusion if medically necessary: No Are you currently employed? 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 I don't have enough money to pay my bills: Never Within the past 12 months, have you worried that your food would run out before you had money to buy more: Never In the past 12 months, has lack of reliable transportation kept you from going to medical appointments or work, or from keeping things needed for daily living: Never In the past 12 months, have you had any concerns about having a place to live, or about the condition or quality of your housing: Never Are there any cultural or spiritual needs we should be aware of: No Depression: denies symptoms of depression. OB Depression and Anxiety Screening- This Encounter (since 01/26/2023) Over the past 2 weeks have you felt down, depressed, or hopeless? Negative Over the past two weeks, have you felt little interest or pleasure in doing things? 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 Norethin Sam-Eth Estrad-FE (LOESTRIN FE 07/19) 1 mg-20 mcg (21)/75 mg (7) per tablet Take 1 tablet by mouth once daily. (Patient not taking: Reported on 01/16/2023) 28 tablet 11 No current facility-administered medications for this visit. Allergies As of Date: 01/27/2023 Allergen Noted Reaction PENICILLINS 05/02/2006 Fully Assessed 01/27/2023 Does patient have penicillin allergy: Yes, plan for allergy testing. REVIEW OF SYSTEMS: GENERAL: Negative for: Fever or Chills and Positive for: Fatigue HEENT: Negative for: Headache, Impaired Vision, Ringing in Ears, Nosebleeds NECK: Negative for: Swelling, Pain, Stiffness RESPIRATORY: Negative for: Cough, Shortness of breath, Wheezing GASTROINTESTINAL: Negative for: Heartburn, Constipation, Diarrhea, Blood in stool, Vomiting and Positive for: Heartburn MUSCULOSKELETAL: Negative for: Muscle or joint pain, stiffness, Joint swelling NEUROLOGIC/PSYCHIATRIC: Negative for: Weakness, Paralysis, Numbness, Tingling, Tremor, Anxiety, Depression, Memory loss SKIN: Negative for: Rash, Itching GENITOURINARY: Negative for: vaginal itching, vaginal discharge, hematuria or dysuria PHYSICAL EXAM: BP 122/76 Wt 295 lb (133.8kg) LMP 11/22/2022 GENERAL: pleasant in no apparent distress DERMATOLOGY: Normal and without lesions NECK: Supple and full range of motion CHEST: Normal inspiratory effort BREAST: soft, non-tender, symmetric, no dominant mass, normal nipple-areolar complex, no lymphadenopathy, and no nipple discharge ABDOMEN: soft, non-tender, and no masses NEURO: alert and oriented x3,exam grossly non-focal PELVIS: External genitalia normal without lesions. Perineal body intact. No vaginal or cervical lesions. Cervix closed. Uterus 9 week size. No adnexal masses or tenderness. Clinical Pelvimetry: Pelvimetry clinically assessed as adequate Limited OB ultrasound exam: single intrauterine , positive cardiac activity, and normal bilateral adnexa OB Risk Screening: Completed, no positive findings documented. SBIRT Aba Friend was given the 4's screening tool. Aba answered as follows: OB Opioid Screening - Last Recorded (since 05/02/2022) Did any of your parents have a problem with alcohol or other drug use? Yes Father-ETOH Does your partner have a problem with alcohol or other drug use? No In the past, have you had difficulties in your life because of alcohol or other drugs, including prescription medications? No In the past month have you drunk any alcohol or used other drugs? No Are you taking medication for pain during the either prescribed or not? No Based on the screen and further questions, she is considered at Low risk due to:No past or current use. Positive reinforcement of current behavior. Karina Moreno APRN.CNM ASSESSMENT: 27 year old at 9w3d wks gestational age PLAN: 1) Patient oriented to practice. Patient given new OB orientation folder. Discussed nutrition, folic acid supplementation, dietary guidelines, exercise, smoking, alcohol, caffeine, and drug use. Discussed gestational weight gain guidelines. Discussed routine OB labs including STD/HIV. Discussed how to access Your guide to a health and the Human Services Assistant. Discussed aneuploidy and carrier screening. Regarding aneuploidy screening, nuchal translucency/first trimester early anatomy ultrasound and NIPT were discussed. Regarding carrier screening, the myriad screen was discussed. The risks/benefits and limitations of NIPT/aneuploidy screening were reviewed including the potential for false negative and false positive results. We discussed the availability of professional-society guided carrier screening and reviewed the conditions screened and limitations of screening. The availability of genetic counseling was reviewed. Information on aneuploidy/carrier screening was provided. The patient chooses: Aneuploidy screening: chooses to proceed with First trimester early anatomy ultrasound (12-13w6d) and sequential screening Reviewed midwifery and paramedical aide services that are available. Obesity- BMI >40- Will start growth US and NST's at 32 weeks gestation Follow up in 2 weeks for NT US and labs or sooner prn. Karina Moreno APRN.CNM documented in this encounter [facility] 01-27-2023 Instructions Toño Bhatti Cma - 01/27/2023 8:34 AM EDT Please select the following link to access the [facility] Your Guide to a Healthy . [email or web address] documented in this encounter [facility] 01-16-2023 Miscellaneous Notes DISTANCE HEALTH VISIT This Team Access Model visit is a phone encounter. It required patient-provider interaction for the medical decision making as documented below. I have communicated my name and active licensure. The patient's identity and physical location were verified at the time of this visit. Patient got on control pills. She and her were shocked but moving into acceptance . Patient considering aneuploidy screening. Contact information for [facility] given to patient to check on insurance coverage. Patient considering Carrier screening testing. Contact information for [facility] given to patient to check on Insurance coverage. Patient is obese. Will plan on early Hgb A1C. documented in this encounter [facility] 05-06-2022 History of Presen t illness Narrative Aba Saenz is a 26 year old female who presents for follow up. HPI: Started ocp about 1 month ago. Had some CHE and cramping and breast tenderness for the first 1 week that then resolved. She offers no complaints today. She is satisfied with the control pill at this time. 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 History Comments: Sexual Activity: Never; No partner data on record Contraception: No contraception data on record PAST MEDICAL HISTORY Diagnosis Date NEGATIVE MEDICAL HISTORY Obesity, unspecified PAST SURGICAL HISTORY Procedure Laterality Date NONE FAMILY HISTORY Problem Relation Age of Onset Skin Cancer Mother Hypertension Father Prostate Cancer Father Asthma Maternal Grandmother Coronary Artery Disease Maternal Grandfather [place] age 62 Emphysema Paternal Grandfather Social History Tobacco Use Smoking status: Never Smokeless tobacco: Never Vaping Use Vaping Use: Never used Substance Use Topics Alcohol use: No Drug use: No Current Outpatient Medications Medication Sig Norethin Sam-Eth Estrad-FE (LOESTRIN FE 07/19) 1 mg-20 mcg (21)/75 mg (7) per tablet Take 1 tablet by mouth once daily. No current facility-administered medications for this visit. Allergies As of Date: 05/06/2022 Allergen Noted Reaction PENICILLINS 05/02/2006 Fully Assessed 05/06/2022 REVIEW OF SYSTEMS Expanded ROS: N/A Allergies and current medication updated:Yes EXAM: BP 120/80 Wt 288 lb 9.6 oz (130.9kg) LMP 04/14/2022 GENERAL: pleasant, female in no apparent distress HEENT: Normocephalic and atraumatic NECK: full range of motion DERMATOLOGY: Normal and without lesions CHEST: Normal inspiratory effort NEURO: exam grossly non-focal EXTREMITIES: normal ASSESSMENT AND PLAN: Encounter Diagnosis ICD-10-CM 1. Encounter for surveillance of contraceptive pills Z30.41 Patient doing well on the control pill. BP normal today. Discussed expectations and reasons to call. RTO annual exams and PRN. Stepan Maxwell DO Medical Decision Making: Risk: Moderate: Drug management Medical Decision Making Level: 2 - Straightforward documented in this encounter [facility] 04-01-2022 History of Presen t illness Narrative Patient identified by name and date of . Aba Saenz is here for her HPV 9 vaccination, injection # one of the series. Patient ?No Gardasil injection was given without incident. See immunizations for details of immunizations administered today. VIS sheet provided: Yes Patient advised to follow up in 2 months from the 1st injection Provider Stepan Maxwell DO was present in office at time of injection. Scarlett Pisano RN Drop Count Associate offered: Patient declines. Alla is a 26 year old No obstetric history on file. who presents for an annual gynecologic exam without complaints. Menses: Regular, monthly menstrual cycles with bleeding for 5 days. 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 History Comments: Sexual Activity: Never; No partner data on record Contraception: No contraception data on record PAST MEDICAL HISTORY Diagnosis Date NEGATIVE MEDICAL HISTORY Obesity, unspecified PAST SURGICAL HISTORY Procedure Laterality Date NONE FAMILY HISTORY Problem Relation Age of Onset Skin Cancer Mother Hypertension Father Prostate Cancer Father Asthma Maternal Grandmother Coronary Artery Disease Maternal Grandfather [place] age 62 Emphysema Paternal Grandfather SOCIAL HISTORY Social History Tobacco Use Smoking status: Never Smokeless tobacco: Never Vaping Use Vaping Use: Never used Substance Use Topics Alcohol use: No Drug use: No REVIEW OF SYSTEMS Abdomen: No abdominal pain, nausea, vomiting, diarrhea, or constipation. No bloating, early satiety, indigestion, or increased flatulence. Bladder: No dysuria, gross hematuria, urinary frequency, urinary urgency, or incontinence. Breast: No breast lumps, nipple d/c, overlying skin changes, redness or skin retraction. Allergies and current medication updated:Yes EXAM: BP 120/80 Ht 5' 6.142 (1.68m) Wt 291 lb (132.0kg) LMP 03/16/2022 BMI 46.77 kg/(m^2). GENERAL: pleasant, female in no apparent distress HEENT: Normocephalic, atraumatic, mucus membranes moist, and no lesions NECK: Supple, full range of motion, no adenopathy, and thyroid normal DERMATOLOGY: Normal, without lesions, non-icteric, and non-hirsute BREAST: soft, non-tender, symmetric, no dominant mass, normal nipple-areolar complex, no lymphadenopathy, and no nipple discharge CHEST: Normal inspiratory effort ABDOMEN: soft, non-tender, and no masses PELVIC: external genitalia normal, normal Bartholin's glands, urethra, [employer]'s glands, no vulvar lesions, no cervical lesions, good vaginal support, physiologic discharge present, normal appearing perineal body and perianal region BIMANUAL: uterus normal size, shape and consistency, no adnexal masses, and non-tender RECTOVAGINAL: deferred. NEURO: exam grossly non-focal EXTREMITIES: normal ASSESSMENT/PLAN: 1) Health maintenance: Pap done with reflex HPV. Nutrition, exercise and routine health maintenance exams reviewed. HPV vaccine: discussed and pt desires to start series today. 2) Contraception: none. Contraceptive options reviewed and information provided. - Desires to start ocp 3) STD screening: Declined STD check. 4) Follow up one year or sooner as needed Stepan Maxwell DO documented in this encounter [facility] 04-01-2022 Instructions Scarlett Pisnao RN - 04/01/2022 9:56 AM EDT Gardasil Gardasil is a vaccine to protect against Human Papillomavirus (HPV) types 6, 11, 16, 18, 31,33,45, 52, 58. These viruses cause cancer and precancerous lesions on the cervix (opening between vagina and uterus), in the vagina and on the vulva (skin around the outside of the vagina) as well as genital warts. The vaccine cannot cause these diseases and cannot treat them if already present. Gardasil works best if given before contact with HPV. Most people are exposed to HPV soon after starting sexual activity. The vaccine is recommended between the ages of 9 and 45. Gardasil does not protect against all strains of HPV. Women who receive the vaccine still need to have regular pelvic exams and cervical cancer screening with the pap smear. You should ask your doctor if Gardasil is right for you if you have a weakened immune system, a bleeding disorder, plan to become soon or have a current illness causing fever. Gardasil is not recommended for women. You should be sure your doctor is aware of any allergies you have and all medications and herbal supplements you take. Gardasil is given to those ages 9-14 in 2 doses at 0 and 8 months. In ages 15-45, three injections are given at 0,2,6 months. Common side effects include pain, redness, itching and swelling at the injection site, nausea, fever, dizziness and fainting. Rare but potentially serious reactions have been reported. These include allergic reaction, swollen glands, joint and muscle pain, weakness and Guillain-[place] syndrome. [facility] Oral contraceptives or control pills contain synthetic hormones that act similarly to the hormones the body produces. When used consistently and correctly, control pills: 1) prevent the ovaries from releasing the egg 2) alter the cervical mucous so that sperm cannot penetrate the egg, or 3) change the uterine lining to prevent the implantation of a fertilized egg. Instructions: Read the package insert for the control pill you are taking. Another method of control should be used during the first month of taking the Pill to provide protection from . Other methods, such as foam and condoms should be used until the second month and as a back-up method in case you run out of pills, miss taking a pill or decide to stop taking the Pill. Take the first pill on the first Friday after the first day of your menstrual period or as directed by your physician. If your period should start on a Friday, start the Pill that day. Your healthcare provider may prescribe a: 21 day pack where you will take a pill each day for 21 days, stop for 7 days (your menstrual period should begin) and then start the next pack on the day; or, 28 day pack where you take a pill every day for 28 days. Your menstrual period should begin sometime during the last 7 days of pill taking (these pills will be a different color). Take your pill each day at the same time. Do Not Skip Pills. Check and re-check the pack each day to make certain you have taken that day's dosage. IF YOU FORGET TO TAKE ONE PILL, take it as soon as you remember, or if you don't remember until the next day, take the missed pill along with the current day's pill. Use additional control protection for the remainder of the pack. IF YOU FORGET TO TAKE TWO PILLS, take 2 pills daily for the next 2 days at your regular time. Use protection for the remainder of the pill pack. Do Not take more than 2 pills in one day. IF YOU MISS 3 OR MORE PILLS IN A ROW, stop taking the pills immediately and begin using a second method of control. The risk of is greatly increased. Stop using the old pack of pills, wait for withdrawal bleeding and begin the new cycle as directed. Some common symptoms you may experience during the first 2-3 cycles of pill taking are: nausea - try taking the pill in the evening breast tenderness and swelling bloating and 5-7 lbs weight gain intermittent vaginal spotting or bleeding health and safety coordinator and shorter menstrual periods (possibly a missed period). Contact your physician if you experience any of the following: severe abdominal pain severe chest pain or shortness of breath persistent, severe headaches unrelieved by Aspirin or Tylenol and rest accompanied by dizziness, weakness, numbness eye problems such as blurred vision or loss of vision severe pain, swelling, redness,or tenderness in legs. If you think you are , call your provider's office. You will need to have a test done if you have missed your menstrual period after your first cycle of pills and if you have not had a menstrual flow for two consecutive months. Side effects from taking Oral Contraceptives may include depression, fatigue, and decreased sex drive. See your doctor if these symptoms or mood changes occur. Always let your healthcare providers know that you are taking Oral Contraception. It is a medication and should be noted in your health record for any provider you see. Always know the name and dosage of your pill. Certain medications may interfere with the effectiveness of the pill or may cause an increase in breakthrough bleeding. Barbituates and Dilantin and some antibiotics such as Ampicillin, Rifampin, and Erythromycin are some drugs that may decrease the efficacy. Use a back-up method of contraception when taking any medications that can decrease the pill's effectiveness. Gardasil Gardasil is a vaccine to protect against Human Papillomavirus (HPV) types 6, 11, 16, 18, 31,33,45, 52, 58. These viruses cause cancer and precancerous lesions on the cervix (opening between vagina and uterus), in the vagina and on the vulva (skin around the outside of the vagina) as well as genital warts. The vaccine cannot cause these diseases and cannot treat them if already present. Gardasil works best if given before contact with HPV. Most people are exposed to HPV soon after starting sexual activity. The vaccine is recommended between the ages of 9 and 45. Gardasil does not protect against all strains of HPV. Women who receive the vaccine still need to have regular pelvic exams and cervical cancer screening with the pap smear. You should ask your doctor if Gardasil is right for you if you have a weakened immune system, a bleeding disorder, plan to become soon or have a current illness causing fever. Gardasil is not recommended for women. You should be sure your doctor is aware of any allergies you have and all medications and herbal supplements you take. Gardasil is given to those ages 9-14 in 2 doses at 0 and 8 months. In ages 15-45, three injections are given at 0,2,6 months. Common side effects include pain, redness, itching and swelling at the injection site, nausea, fever, dizziness and fainting. Rare but potentially serious reactions have been reported. These include allergic reaction, swollen glands, joint and muscle pain, weakness and Guillain-[place] syndrome. documented in this encounter [facility] 10-25-2021 Miscellaneous Notes Phone call placed, phone rang, rang no answer,unable to leave a message. [employer] active 10/23/21 message sent with results. Rosalva Ruiz LPN Unable to reach patient. Mailbox full/Mailbox not set up/ Number incorrect. Please try again later. Savanah Lopez Please inform patient of negative mono test. Continue comfort measures as discussed at visit. Advise to follow up with PCP as needed. Gracy Hager APRN.MAGDALENO documented in this encounter [facility] [place] [facility]* Diagnosis Encounter for surveillance of contraceptive pills- Primary Surveillance of previously prescribed contraceptive pill documented in this encounter [facility] note* Diagnosis on oral contraceptive- Primary state, incidental Obesity in , antepartum Obesity complicating , childbirth, or the puerperium, antepartum condition or complication documented in this encounter [facility] note* Diagnosis Encounter for care in first trimester of first - Primary 9 weeks gestation of state, incidental Obesity in , antepartum Obesity complicating , childbirth, or the puerperium, antepartum condition or complication [facility] [place] [facility]* Diagnosis 12 weeks gestation of - Primary state, incidental Encounter for supervision of normal first in first trimester Supervision of normal first [facility] [place] [facility] Diagnosis Encounter for nuchal translucency testing- Primary Other specified screening Encounter for care in first trimester of first 9 weeks gestation of state, incidental documented in this encounter [facility] note* Diagnosis Two vessel umbilical cord, antepartum- Primary Other umbilical cord complications during labor and delivery, antepartum Obesity in , antepartum Obesity complicating , childbirth, or the puerperium, antepartum condition or complication 20 weeks gestation of state, incidental [facility] [place] [facility] Diagnosis Encounter for anatomic survey- Primary 20 weeks gestation of state, incidental Obesity affecting in second trimester, unspecified obesity type Single umbilical artery affecting management of mother in marrufo , antepartum [facility] [place] [facility] Diagnosis Encounter for anatomic survey- Primary [facility] [place] [facility] Diagnosis 24 weeks gestation of - Primary state, incidental Two vessel umbilical cord, antepartum Other umbilical cord complications during labor and delivery, antepartum Obesity in , antepartum Obesity complicating , childbirth, or the puerperium, antepartum condition or complication Need for influenza vaccination Need for prophylactic vaccination and inoculation against influenza [facility] [place] [facility] Diagnosis Encounter for follow-up ultrasound of anatomy- Primary 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 24 weeks gestation of state, incidental [facility] [place] [facility] Diagnosis 28 weeks gestation of - Primary state, incidental 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 Need for vaccination Need for prophylactic vaccination and inoculation against unspecified single disease Supervision of other high risk pregnancies, third trimester Maternal obesity syndrome in third trimester [facility] [place] [facility] Diagnosis Encounter for ultrasound to check growth- Primary Encounter for routine screening for malformation using ultrasonics 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 Supervision of other high risk pregnancies, third trimester Obesity affecting in second trimester, unspecified obesity type [facility] [place] [facility] Diagnosis 36 weeks gestation of - Primary state, incidental Polyhydramnios in third trimester complication, single or unspecified fetus Obesity in , antepartum Obesity complicating , childbirth, or the puerperium, antepartum condition or complication Breech presentation, single or unspecified fetus [facility] [place] [facility] Diagnosis Supervision of other high risk pregnancies, third trimester- Primary 37 weeks gestation of state, incidental 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 Polyhydramnios in third trimester complication, single or unspecified fetus Obesity in , antepartum Obesity complicating , childbirth, or the puerperium, antepartum condition or complication documented in this encounter [facility]Reason [facility] (narrative)* Diagnostic Procedure Only (Routine) - Authorized Specialty Diagnoses / Procedures Referred By Contac t Referred To Contact [facility] Diagnoses Encounter for care in first trimester of first 9 weeks gestation of Procedures NUCHAL TRANSLUCENCY WHI US NUCHAL TRANSLUCENCY 1ST GESTATION Karina Moreno APRN.CNM [address] [place] [address] [facility] [place] [address] Referral ID Status Reason Start Date Expiration Date Visits Requested Visits Authorized [id number] Authorized Auto-Generat ed Referral 01/27/2023 01/27/2024 1 1 * Diagnostic Procedure Only (Routine) - Pending Review Specialty Diagnoses / Procedures Referred By Contac t Referred To Contact [facility] Diagnoses Encounter for care in first trimester of first 9 weeks gestation of Procedures OBSTETRIC ULTRASOUND WHI US PREG UTERUS AFTER 1ST TRIMEST GESTATION Karina Moreno APRN.CNM [address] [place] [address] [facility] [place] [address] Referral ID Status Reason Start Date Expiration Date Visits Requested Visits Authorized [id number] Pending Review Auto-Generat ed Referral 01/27/2023 01/27/2024 1 1 [facility] for referral (narrative)* Diagnostic Procedure Only (Routine) - Pending Review Specialty Diagnoses / Procedures Referred By Contac t Referred To Contact [facility] Diagnoses Encounter for anatomic survey Procedures OBSTETRIC ULTRASOUND WHI US PREG UTERUS AFTER 1ST TRIMEST GESTATION Karina Moreno APRN.CNM [address] [place] [address] [facility] [employer] [place] [address] Referral ID Status Reason Start Date Expiration Date Visits Requested Visits Authorized [id number] Pending Review Auto-Generat ed Referral 3 04/13/2024 1 1 [facility] for referral (narrative)* Outpatient Procedure (Routine) - Authorized Specialty Diagnoses / Procedures Referred By Contac t Referred To Contact [facility] Diagnoses Single umbilical artery Supervision of other high risk pregnancies, third trimester Maternal obesity syndrome in third trimester Procedures NON-STRESS TEST NON-STRESS TEST Aba Mccall MD [address] [place] [address] [address] Referral ID Status Reason Start Date Expiration Date Visits Requested Visits Authorized [id number] Authorized Auto-Generat ed Referral 3 06/08/2024 8 1 * Diagnostic Procedure Only (Routine) - Authorized Specialty Diagnoses / Procedures Referred By Contac t Referred To Contact [facility] Diagnoses Single umbilical artery Supervision of other high risk pregnancies, third trimester Procedures OBSTETRIC ULTRASOUND WHI US PREG UTERUS AFTER 1ST TRIMEST GESTATION Aba Mccall MD [address] [place] [address] [address] [place] [address] Referral ID Status Reason Start Date Expiration Date Visits Requested Visits Authorized [id number] Authorized Auto-Generat ed Referral 3 06/08/2024 4 1 [facility] Health Concerns Problem Noted Date Diagnosed Date [facility] - [facility] 01/27/2023 [place] - [place] 01/27/2023 Problem Noted Date Diagnosed Date [facility] Education - [place] 01/27/2023 [place] - [place] 01/27/2023 Problem Noted Date Diagnosed Date [facility] Education - [place] 01/27/2023 Education - [place] 01/27/2023 Problem Noted Date Diagnosed Date [facility] Education - [facility] 01/27/2023 Education - [place] 01/27/2023 Problem Noted Date Diagnosed Date [facility] - [facility] 01/27/2023 Education - [place] 01/27/2023 Problem Noted Date Diagnosed Date [facility] - [facility] 01/27/2023 Education - [place] 01/27/2023 Problem Noted Date Diagnosed Date [facility] - [facility] 01/27/2023 Education - [place] 01/27/2023 Problem Noted Date Diagnosed Date [facility] - [facility] 01/27/2023 Education - [place] 01/27/2023 Problem Noted Date Diagnosed Date [facility] - [facility] 01/27/2023 Education - [place] 01/27/2023 Problem Noted Date Diagnosed Date [facility] - [facility] 01/27/2023 Education - [place] 01/27/2023 Problem Noted Date Diagnosed Date [facility] - [facility] 01/27/2023 [place] - [place] 01/27/2023 Summary Purpose Family History No Family History Records Found Advance Directives No Advanced Directives Records Found Additional Source Comments Source Comments (unrecognize d section and content) In the event this informatio n is protected by the Federal Confidentiality of Alcohol and Drug Abuse Patient Records regulations: The Federal rules restrict any use of the information to criminally investigate or prosecute any alcohol or drug abuse patient.[facility] the event this information is protected by the Federal Confidentiality of Alcohol and Drug Abuse Patient Records regulations: The Federal rules restrict any use of the information to criminally investigate or prosecute any alcohol or drug abuse patient.[facility] CenterIn the event this information is protected by the Federal Confidentiality of Alcohol and Drug Abuse Patient Records regulations: The Federal rules restrict any use of the information to criminally investigate or prosecute any alcohol or drug abuse patient.[facility] Center[facility] the event this information is protected by the Federal Confidentiality of Alcohol and Drug Abuse Patient Records regulations: The Federal rules restrict any use of the information to criminally investigate or prosecute any alcohol or drug abuse patient.[facility] CenterIn the event this information is protected by the Federal Confidentiality of Alcohol and Drug Abuse Patient Records regulations: The Federal rules restrict any use of the information to criminally investigate or prosecute any alcohol or drug abuse patient.[facility] Center[facility] the event this information is protected by the Federal Confidentiality of Alcohol and Drug Abuse Patient Records regulations: The Federal rules restrict any use of the information to criminally investigate or prosecute any alcohol or drug abuse patient.[facility] CenterIn the event this information is protected by the Federal Confidentiality of Alcohol and Drug Abuse Patient Records regulations: The Federal rules restrict any use of the information to criminally investigate or prosecute any alcohol or drug abuse patient.[facility] CenterIn the event this information is protected by the Federal Confidentiality of Alcohol and Drug Abuse Patient Records regulations: The Federal rules restrict any use of the information to criminally investigate or prosecute any alcohol or drug abuse patient.[facility] CenterIn the event this information is protected by the Federal Confidentiality of Alcohol and Drug Abuse Patient Records regulations: The Federal rules restrict any use of the information to criminally investigate or prosecute any alcohol or drug abuse patient.[facility] Center[facility] the event this information is protected by the Federal Confidentiality of Alcohol and Drug Abuse Patient Records regulations: The Federal rules restrict any use of the information to criminally investigate or prosecute any alcohol or drug abuse patient.[facility] Center[facility] the event this information is protected by the Federal Confidentiality of Alcohol and Drug Abuse Patient Records regulations: The Federal rules restrict any use of the information to criminally investigate or prosecute any alcohol or drug abuse patient.[facility] CenterIn the event this information is protected by the Federal Confidentiality of Alcohol and Drug Abuse Patient Records regulations: The Federal rules restrict any use of the information to criminally investigate or prosecute any alcohol or drug abuse patient.[facility] CenterIn the event this information is protected by the Federal Confidentiality of Alcohol and Drug Abuse Patient Records regulations: The Federal rules restrict any use of the information to criminally investigate or prosecute any alcohol or drug abuse patient.[facility] CenterIn the event this information is protected by the Federal Confidentiality of Alcohol and Drug Abuse Patient Records regulations: The Federal rules restrict any use of the information to criminally investigate or prosecute any alcohol or drug abuse patient.[facility] CenterIn the event this information is protected by the Federal Confidentiality of Alcohol and Drug Abuse Patient Records regulations: The Federal rules restrict any use of the information to criminally investigate or prosecute any alcohol or drug abuse patient.[facility] CenterIn the event this information is protected by the Federal Confidentiality of Alcohol and Drug Abuse Patient Records regulations: The Federal rules restrict any use of the information to criminally investigate or prosecute any alcohol or drug abuse patient.[facility] CenterIn the event this information is protected by the Federal Confidentiality of Alcohol and Drug Abuse Patient Records regulations: The Federal rules restrict any use of the information to criminally investigate or prosecute any alcohol or drug abuse patient.[facility] CenterIn the event this information is protected by the Federal Confidentiality of Alcohol and Drug Abuse Patient Records regulations: The Federal rules restrict any use of the information to criminally investigate or prosecute any alcohol or drug abuse patient.[facility] CenterIn the event this information is protected by the Federal Confidentiality of Alcohol and Drug Abuse Patient Records regulations: The Federal rules restrict any use of the information to criminally investigate or prosecute any alcohol or drug abuse patient.[facility] CenterIn the event this information is protected by the Federal Confidentiality of Alcohol and Drug Abuse Patient Records regulations: The Federal rules restrict any use of the information to criminally investigate or prosecute any alcohol or drug abuse patient.[facility] CenterIn the event this information is protected by the Federal Confidentiality of Alcohol and Drug Abuse Patient Records regulations: The Federal rules restrict any use of the information to criminally investigate or prosecute any alcohol or drug abuse patient.[facility] Reason for Visit (unrecogniz ed section and content) Reason Onset Date Comments Yearly Exam Gardasil Injection 04/01/2022 Reason Comments Follow Up From OCP Specialty Diagnoses / Procedures Referred By Dionna t Referred To Contact [facility] OCCUPATIONAL THERAPIST Diagnoses control follow up Procedures EST [facility] PATIENT Self Stepan Maxwell MD [address] [place] [address] Referral ID Status Reason Start Date Expiration Date Visits Re quested Visits Authorized [id number] Closed 05/06/2022 06/29/2022 1 1 Reason Comments Care Reason Onset Date Comments Care 02/18/2023 Reason Comments US Specialty Diagnoses / Procedures Referred By Dionna stanley Referred To Contact [facility] Diagnoses Encounter for care in first trimester of first 9 weeks gestation of Procedures NUCHAL TRANSLUCENCY WHI US NUCHAL TRANSLUCENCY 1ST GESTATION Karina Moreno APRN.CN [address] [place] [address] [address] Referral ID Status Reason Start Date Expiration Date V isits Requested Visits Authorized [id number] Closed Auto-Generate d Referral 01/27/2023 01/27/2024 1 1 Reason Onset Date Comments Care 04/14/2023 Specialty Diagnoses / Procedures Referred By Dionna t Referred To Contact [facility] Diagnoses Encounter for care in first trimester of first 9 weeks gestation of Procedures OBSTETRIC ULTRASOUND WHI US PREG UTERUS AFTER 1ST TRIMEST GESTATION Karina Moreno APRN.CNPetr [address] [place] [address] [address] [place] [address] Referral ID Status Reason Start Date Expiration Date V isits Requested Visits Authorized [id number] Closed Auto-Generate d Referral 01/27/2023 01/27/2024 1 1 Reason Comments Orders Reason Onset Date Comments Care 05/12/2023 Immunizations 05/12/2023 Flu vaccination Specialty Diagnoses / Procedures Referred By Contac t Referred To Contact [facility] Diagnoses Encounter for anatomic survey Procedures OBSTETRIC ULTRASOUND WHI US PREG UTERUS AFTER 1ST TRIMEST GESTATION Karina Moreno APRN.CN [address] [place] [address] [address] Referral ID Status Reason Start Date Expiration Date V isits Requested Visits Authorized [id number] Closed Auto-Generate d Referral 04/14/2023 04/13/2024 1 1 Reason Onset Date Comments Care 06/09/2023 Specialty Diagnoses / Procedures Referred By Contac t Referred To Contact [facility] Diagnoses Single umbilical artery Supervision of other high risk pregnancies, third trimester Procedures OBSTETRIC ULTRASOUND WHI US PREG UTERUS AFTER 1ST TRIMEST GESTATION Aba Mccall MD [address] [place] [address] [address] Referral ID Status Reason Start Date Expiration Date V isits Requested Visits Authorized [id number] Closed Auto-Generate d Referral 06/09/2023 06/08/2024 4 1 Reason Onset Date Comments Care 08/04/2023 Reason Onset Date Comments Care 08/12/2023 Reason Comments Preparations For Surgery Care Teams (unrecognized sec tion and content) INFORMATION SOURCE (unrecogn ized section and content) FOR RECORDS PERTAINING TO PATIENTS WHO ARE OR HAVE BEEN ENROLLED IN A CHEMICAL DEPENDENCY/SUBSTANCEABUSE PROGRAM, SOME INFORMATION MAY BE OMITTED. This clinical summary was aggregated from multiple sources. Caution should be exercised in using it in the provision of clinical care. This summary normalizes information from multiple sources, and as a consequence, information in this document may materially change the coding, format and clinical context of patient data. In addition, data may be omitted in some cases. CLINICAL DECISIONS SHOULD BE BASED ON THE PRIMARY CLINICAL RECORDS. [facility] [employer] [facility]. provides no warranty or guarantee of the accuracy or completeness of information in this document.
[2023-08-22 11:16] LABS: Absolute Lymphocyte Count 2.06 X10^3/uL (0.83-4.51); Absolute Neutrophil Count 8.1 X10^3/uL (2.0-7.7); Basophil# 0.04 X10^3/uL; Basophil% 0.4 % (0-1); Eosinophil# 0.09 X10^3/uL; Eosinophils% 0.8 % (0-5); Hematocrit 36.1 % (37-47); Lymphocyte # 2.06 X10^3/ul (0.83-4.51); Mean Corp Hgb Conc 33.2 g/dL (32-36); Mean Corpuscular Hgb 29.4 pg (27.0-32.0); Mean Corpuscular Volume 88.5 fL (81-99); Mean Platelet Vol. 9.5 fl (6.2-12.0); Monocyte# 0.48 X10^3/uL; Monocyte% 4.4 % (0-10); NRBC Flagged by Analyzer 0 % (0-5); Neutrophil # 8.05 X10^3/uL (2.7-7.7); Neutrophil % 74.3 % (47-70); Platelet Count 230 K/mm3 (150-450); RBC Distribution Width CV 13.6 % (11.6-14.6); RBC Distribution Width SD 43.8 fl (35.1-43.9); Red Blood Count 4.08 M/mm3 (4.2-5.4); White Blood Count 10.8 K/mm3 (4.4-11.0)
[2023-08-22] MEDS: Acetaminophen 500 MG Tablet 1000 MG PO ×2 (11:55→18:40)
[2023-08-22] MEDS: Lactated Ringers 1,000 ML 999 ML IV (11:56)
[2023-08-22] MEDS: Sodium Citrate/Citric Acid 30 ML UDC PO (11:57)
[2023-08-22] MEDS: Lactated Ringers 1,000 ML 150 ML IV (12:00)
[2023-08-22 12:10] LABS: Syphilis Antibodies Non-reactive
[2023-08-22] MEDS: Cefazolin 3 GM in 0.9% Normal Saline (100mL Bag) 100 ML IV (12:10)
[2023-08-22] MEDS: Ketorolac 30 MG/ML Syringe IV ×2 (14:00→20:52)
--- NOTE | 2023-08-22 14:17 | OP.PCM_ITS ---
Problems Associated Problem List Diagnoses (1) Two vessel umbilical cord: (2) Obesity affecting : (3) Breech presentation: (4) 39 weeks gestation of : Report of Operation Date of Procedure: 08/22/23 Pre-Operative Diagnosis: 39 week gestation, breech presentation, obesity in Post-Operative Diagnosis: As above Surgery/Procedure Performed:: PLTCS via pfannenstiel incision Description of Surgical Findings:: VMI in complete breech presentation. Apgars 8, 9. Clear fluid. Normal appearing placenta. Normal appearing uterus and bilateral adnexa. Surgeon: Nelida Maxwell fitness assistant: Lencho Berumen fitness assistant: Naz Dietrich Type of Anesthesia: Spinal Special Medications: None Specimen's removed: Placenta Drains: Scott Estimated Blood Loss (mL): 900 Fluids Replaced: 1500 mL Description of Procedure: The patient was taken to the operating room where spinal anesthesia was induced and found to be adequate. She was prepped and draped in the dorsal supine position with a leftward tilt. A Pfannenstiel skin incision was made using the scalpel and this was carried down to the underlying layer of fascia. The fascia was incised in the midline. The fascial incision was extended laterally using Olivarez scissors. The fascia was dissected off the rectus muscles with combination of sharp and blunt dissection in both cephalad and caudad direction. The midline of the rectus muscles was identified and the rectus muscles were . The peritoneum was entered with a combination of sharp and blunt dissection with good visualization of the bladder. The peritoneal incision was extended bluntly with lateral traction. The rectus muscles were noted to be a limiting the available space for delivery of the . The peritoneal incision was extended laterally using the Bovie cautery with good visualization of bladder. Lateral traction was then again applied, but still limited space for delivery was felt given the rectus muscles. Using the Bovie cautery the rectus muscles were incised the length of about 2 cm on both the left and right side. Hemostasis was noted. A bladder blade was then inserted. Good visualization of bladder was noted. A low transverse incision was made on the uterus with a scalpel. The uterine incision was extended with cephalad and caudad traction. Membranes were ruptured for clear fluid upon entry. The buttocks of the was delivered, followed by the legs, arms, and head of the without any traction, force, or delay and the head was in a flexed position during delivery. The cord was clamped and cut after a slight delay and the was handed off to the waiting nursery staff. The placenta was removed with manual extraction. The uterus was exteriorized. The uterus was cleared of all clot and debris. The uterine incision was closed with 1-0 Vicryl in a running locked fashion. Several additional [id number] sutures using 1-0 Vicryl for hemostasis. The uterus was placed back into the abdomen. The uterine incision was again reinspected. Bigg was placed over the uterine lower uterine segment and hysterotomy, and hemostasis was again noted. The right rectus muscles were noted to be oozy. Hemoblast was placed over the rectus muscles where they were incised. Pressure was applied. Hemostasis was noted. The subfascial space was inspected and there was a vessel that was made hemostatic using a 3-0 Vicryl [id number] stitch. This subfascial space and rectus muscles were inspected and again hemostasis was noted. The fascia was closed with strata fix in a running fashion. Subcutaneous space was irrigated and made hemostatic with the Bovie cautery. Bigg was placed in subcutaneous space. Subcutaneous space was reapproximated in 2 layers using 3-0 Vicryl. The skin was closed with 4-0 Monocryl in a subcuticular fashion. A silver dressing was placed. Instrument, sharp, sponge counts were correct. The patient was taken to the recovery in stable condition. Dr. Lencho Berumen MD was present and assisted with draping the patient, and delivery of . Boni BERMAN was present and assisted with delivery of the and closure. Dr. Lulu Reynoso MD was present to evaluate bleeding, evaluate the subfascial space and the rectus muscles and the hysterotomy, and to apply a hemostatic agent over the rectus muscles. t Grafts/Implants Used: None Procedure Start Time: 12:30 Complications None Admit VTE Documentation VTE Present on Admission: No VTE Mechan Device Prophylaxis: SCD's
[2023-08-22] MEDS: Oxytocin 15 Units/NS 250ml 15 UNITS/250 ML IV.SOLN 83 UNITS IV (15:48)
[2023-08-22] MEDS: Lactated Ringers 1,000 ML 100 ML IV (15:56)
[2023-08-22 18:24] LABS: Hematocrit 32.5 % (37-47); Hemoglobin 10.8 g/dL (12.0-15.0); Mean Corp Hgb Conc 33.2 g/dL (32-36); Mean Corpuscular Hgb 29.2 pg (27.0-32.0); Mean Corpuscular Volume 87.8 fL (81-99); Mean Platelet Vol. 9.7 fl (6.2-12.0); Platelet Count 192 K/mm3 (150-450); RBC Distribution Width CV 13.4 % (11.6-14.6); RBC Distribution Width SD 42.5 fl (35.1-43.9); White Blood Count 17.6 K/mm3 (4.4-11.0)
[2023-08-22] MEDS: oxyCODONE 5 MG Tablet PO (21:42)
[2023-08-23] MEDS: Acetaminophen 500 MG Tablet 1000 MG PO ×4 (00:04→18:15)
[2023-08-23] MEDS: Enoxaparin 40 MG/0.4 ML Syringe SC ×3 (01:57→22:27)
[2023-08-23] MEDS: Ketorolac 30 MG/ML Syringe IV ×2 (01:57→07:33)
[2023-08-23 03:00] VITALS: BP 113/63; PULSE 96; RESP 16; TEMP 36.1; O2SAT 98
[2023-08-23 05:52] LABS: Hematocrit 31.1 % (37-47); Hemoglobin 10.3 g/dL (12.0-15.0); Mean Corp Hgb Conc 33.1 g/dL (32-36); Mean Corpuscular Hgb 29.5 pg (27.0-32.0); Mean Corpuscular Volume 89.1 fL (81-99); Mean Platelet Vol. 9.4 fl (6.2-12.0); Platelet Count 161 K/mm3 (150-450); RBC Distribution Width CV 13.6 % (11.6-14.6); RBC Distribution Width SD 44.3 fl (35.1-43.9); Red Blood Count 3.49 M/mm3 (4.2-5.4); White Blood Count 13.3 K/mm3 (4.4-11.0)
--- NOTE | 2023-08-23 07:18 | PN.OBGYN_ITS ---
Subjective Subjective Patient is doing well this morning and offers no complaints. Pain is well- controlled. She is ambulating and voiding without difficulty. She is tolerating regular diet without nausea or vomiting. She denies chest pain, shortness of breath, leg pain. She denies lightheadedness or dizziness. Lochia is normal. She is breast-feeding. Objective Data Objective Data Vital Signs: Vital Signs Temp Pulse Resp BP Pulse Ox O2 Del Method 97 F L 96 16 113/63 98 Room Air 08/23/23 03:00 08/23/23 03:00 08/23/23 03:00 08/23/23 03:00 08/23/23 03:00 08/23/23 03:00 Oxygen Delivery Method Room Air Weight: 320 lb 1.779 oz Body Mass Index (BMI) 53.2 Intake & Output: Intake and Output for Last 24 Hours 08/21/23 08/22/23 08/23/23 23:59 23:59 23:59 Intake Total 2742.5 / 2742.5 Output Total 1350 / 1350 550 / 550 Balance 1392.5 / 1392.5 -550 / -550 Lab / Micro Data 08/23/23 05:45 Labs: Laboratory Results - last 24 hr 08/22/23 10:40: WBC 10.8, RBC 4.08 L, Hgb 12.0, Hct 36.1 L, MCV 88.5, MCH 29.4, MCHC 33.2, RDW Std Deviation 43.8, RDW Coeff of Song 13.6, Plt Count 230, MPV 9.5, Immature Gran % (Auto) 1.100 H, Neut % (Auto) 74.3 H, Lymph % (Auto) 19.0, Dolores % (Auto) 4.4, Eos % (Auto) 0.8, Baso % (Auto) 0.4, Absolute Neuts (auto) 8.1 H, Absolute Lymphs (auto) 2.06, Nucleated RBC % 0, Syphilis Total Ab Non- reactive, Blood Type B POSITIVE, Antibody Screen NEGATIVE 08/22/23 18:13: WBC 17.6 H, RBC 3.70 L, Hgb 10.8 L, Hct 32.5 L, MCV 87.8, MCH 29.2, MCHC 33.2, RDW Std Deviation 42.5, RDW Coeff of Song 13.4, Plt Count 192, MPV 9.7 08/23/23 05:45: WBC 13.3 H, RBC 3.49 L, Hgb 10.3 L, Hct 31.1 L, MCV 89.1, MCH 29.5, MCHC 33.1, RDW Std Deviation 44.3 H, RDW Coeff of Song 13.6, Plt Count 161, MPV 9.4 Physical Exam Const alert and no apparent distress General Appearance: comfortable HEENT normocephalic Resp normal respiratory effort GI soft to palpation and non-distended GI Narrative: ATTP, non acute, dressing c/d/i Extremity no calf tenderness Assessment & Plan (1) Delivery by section: PLAN: Patient is postoperative day 1 from a primary section for breech presentation. She is doing well this morning. Pain is well-controlled. Continue routine postoperative care. Anticipate discharge tomorrow.
[2023-08-23] MEDS: oxyCODONE 5 MG Tablet PO ×3 (07:33→18:15)
[2023-08-23] MEDS: 0.9% Saline Lock 10 ML Syringe IV (07:39)
[2023-08-23 08:00] VITALS: BP 124/70; PULSE 89; RESP 15; TEMP 36.4; O2SAT 98
--- NOTE | 2023-08-23 09:19 | CASEMGMT ---
Social Work Brief assessment--Labor and Delivery Unit Date/Time of referral: 08/22/23, 11:04am Referred by: Dr. Nelida Maxwell DO Date/Time of intervention: 08/23/23, 9:05am Reason for Referral: Family history Informant: Medical Record, MOB, FOB Assessment: SW met w/MOB and FOB in room, completed brief assessment and gave resources. Home composition: MOB and FOB have been together for two years. Their home will be MOB, FOB and now baby Charanjit. This is their first child, Charanjit, born 08/22/23 at 12:44pm, 3555 grams at , Apgars 8 and 9 at one and five minutes. Financial/Supplies: They have no financial concerns at this time. They have all needed supplies including car seat, crib, clothing, diapers, wipes, bottles, formula. They have two vehicles. Caregivers/Support: MOB's mother and stepfather, FOB's parents, MOB's siblings. Programs/Agencies/Legal issues/Children's Services: None Behavioral Health: MOB and FOB--report no history of mental health. Substance Abuse: MOB and FOB report no history of substance abuse. Family history: REJI reports her father has a history of substance abuse. She states this is why she has no history of substance abuse herself. She states this does not have an impact on her at this point in life. She states they have some limited contact w/her father, at some point she will set up something for him to meet the baby. Family/Social Stressors: None Depression/Anxiety/Shaken baby/Safe Sleeping/crisis hotlines/mental health resources/Help Me Grow: SW gave MOB and FOB information on all of these topics and reviewed it with them, in particular information on depression and anxiety warning signs. SW encouraged MOB to speak w/her physician should she be experiencing symptoms, as at times physicians will prescribe a short term mood enhancer. SW also spoke w/MOB about counseling if it were to be needed. REJI states understanding, she is already aware of resources that the [employer] where she works, [employer] utilizes. Plan: Baby to go home w/MOB and FOB. MOB and FOB both appropriate in conversation w/SW, open w/SW speaking w/them. They have no concerns for homegoing. SW does remain available should any concerns arise. Otherwise, no further social service needs anticipated at this time. JANNETH Ludwig
[2023-08-23] MEDS: Senna/Docusate Sodium 1 Tablet PO (09:42)
[2023-08-23] MEDS: Ibuprofen 600 MG Tablet PO ×2 (13:56→21:21)
[2023-08-23 14:00] VITALS: BP 100/55; PULSE 91; RESP 16; TEMP 36.6; O2SAT 98
[2023-08-23 20:22] VITALS: BP 110/70; PULSE 90; RESP 14; TEMP 36.3; O2SAT 98
[2023-08-24] MEDS: oxyCODONE 5 MG Tablet PO ×2 (00:11→06:03)
[2023-08-24] MEDS: Acetaminophen 500 MG Tablet 1000 MG PO ×2 (00:11→06:03)
[2023-08-24 03:03] VITALS: BP 123/64; PULSE 93; RESP 16; TEMP 36.8; O2SAT 97
[2023-08-24] MEDS: Ibuprofen 600 MG Tablet PO ×2 (03:06→08:48)
[2023-08-24 07:43] VITALS: BP 127/89; PULSE 101; RESP 16; TEMP 36.1; O2SAT 98
--- NOTE | 2023-08-24 08:34 | PCM.PN.OB ---
Subjective Subjective The patient is doing well and offers no complaints. She desires discharge today. Pain is well-controlled. She is ambulating without lightheadedness or dizziness. She is tolerating regular diet without nausea or vomiting. She spontaneously voiding without difficulty. She denies chest pain, shortness of breath, leg pain. Lochia is normal. She is breast-feeding without complaints. Objective Data Objective Data Vital Signs: Vital Signs Temp Pulse Resp BP Pulse Ox O2 Del Method 97.0 F L 101 H 16 127/89 H 98 Room Air 08/24/23 07:43 08/24/23 07:43 08/24/23 07:43 08/24/23 07:43 08/24/23 07:43 08/24/23 07:43 Oxygen Delivery Method Room Air Weight: 320 lb 1.779 oz Body Mass Index (BMI) 53.2 Intake & Output: Intake and Output for Last 24 Hours 08/22/23 08/23/23 08/24/23 23:59 23:59 23:59 Intake Total 2742.5 / 2742.5 Output Total 1350 / 1350 1350 / 1350 Balance 1392.5 / 1392.5 -1350 / -1350 Lab / Micro Data 08/23/23 05:45 Physical Exam Const alert and no apparent distress General Appearance: comfortable HEENT normocephalic Resp normal respiratory effort GI soft to palpation, non-tender and non-distended GI Narrative: FF@U-2, dressing c/d/i Extremity no calf tenderness Extremity Narrative: Trace edema bilaterally Assessment & Plan (1) Delivery by section: PLAN: The patient is postoperative day 2 from a primary for breech presentation. She is doing well and desires discharge today. She is meeting milestones for discharge. Discharge instructions were reviewed with the patient and she will follow-up with me in the office this week for an incision check.
--- NOTE | 2023-08-24 08:40 | DCINST_ITS ---
Discharge Instructions Diet Discharge Diet: No restrictions Activity Discharge Activity: May Drive (once you are no longer needing pain medication, and strong enough to slam on a brake or turn a steering wheel sharply) and May Shower May resume sexual activity in: 6 weeks Ice area for (Minutes): 15 Weight Bearing Status: Weight bearing as tolerated Lifting Restrictions: nothing heavier than baby Dressing / Incision Call your doctor if your incision/area has: Continuous Slow Oozing, Sudden Increased Bleeding, Increased Pain/ Swelling, Increased Redness, Foul Smelling Discharge and Swelling at the incision site Call your doctor if you observe: Fever of 101 or Higher, Coldness, Increased Pain, Numbness or Tingling, Change in Color, Inability to urinate, Inability to have a bowel movement, Using more than 1 pad per hour, Shortness of breath, Dizziness, Fainting spells, Swelling in the ankles, Chest pain, Prolonged hiccupping, Increased palpitations (irregular heartbeat), Calf discomfort and Uncontrolled pain Suture Line Care: Avoid Pulling/Pushing and Avoid Pinching/Bending Remove Dressing in: leave in place till F/U Cleanse incision/area with: Soap & Water Follow Up Care Please Follow Up With: Nelida Maxwell DO When: 1 week for incision check 6 week visit Test Results: Test results from this visit will be discussed in further detail at your follow- up appointment, if applicable. Discharge Plan Admission Admit Date/Time: 08/22/23 09:45 Primary Reason for Your Visit: delivery Attending Provider: Nelida Maxwell Primary Care Provider: Care Physician,Minnie Primary Instructions Patient Instructions: After a Discharge Orders/Prescriptions Prescriptions: New oxycodone-acetaminophen [Percocet] 5-325 mg tablet 1 tab PO Q6H PRN (Reason: pain) 7 Days Qty: 10 0RF ibuprofen 600 mg tablet 600 mg PO Q6H PRN (Reason: pain) Qty: 30 0RF docusate sodium [Colace] 100 mg capsule 100 mg PO DAILY Qty: 30 0RF ferrous sulfate 325 mg (65 mg iron) tablet,delayed release (DR/EC) 325 mg PO QODAY Qty: 20 0RF Continued PNV cmb#95-ferrous fumarate-FA [] 28 mg iron- 800 mcg tablet 1 tab PO DAILY Referrals / Follow Up: Care Physician,No Primary [Primary Care Provider] - Disposition Disposition (needs filled in before D/C Order can be placed): Home, Self Care
--- NOTE | 2023-08-24 08:41 | PCM.DC.SUM ---
Providers Date of Admission: 08/22/23 Date of Discharge: 08/24/23 Primary Care Physician: No Primary Care Phys Reason For Visit: PRIMARY Diagnosis Discharge Diagnosis (1) Delivery by section: Status: Acute Plan: The patient is postoperative day 2 from a primary for breech presentation. She is doing well and desires discharge today. She is meeting milestones for discharge. Discharge instructions were reviewed with the patient and she will follow-up with me in the office this week for an incision check. Medications at Discharge Home Medications vit no.95-ferrous fumarate 28 mg-folic acid 800 mcg tablet () 1 tab PO DAILY 08/22/23 docusate sodium 100 mg capsule (Colace) 100 mg PO DAILY constipation #30 caps 08/24/23 ferrous sulfate 325 mg (65 mg iron) tablet,delayed release 325 mg PO QODAY #20 tabs 08/24/23 ibuprofen 600 mg tablet 600 mg PO Q6H PRN pain #30 tabs 08/24/23 oxycodone-acetaminophen 5 mg-325 mg tablet (Percocet) 1 tab PO Q6H PRN pain 7 days #10 tabs 08/24/23 Hospital Course Operations section Summary of Care Provided Minutes Spent on Discharge: 15 Hospital Course: Patient presented for a scheduled primary section for breech presentation. See operative report for details. On postoperative day 2 she was ambulating and voiding without difficulty, pain was well-controlled, and she was tolerating a diet without nausea or vomiting. She was discharged home in good condition with follow-up in the office for an incision check. Weight / BMI Weight Weight: 320 lb 1.779 oz Body Mass Index (BMI) 53.2 ABG / Lab / Microbiology Data 08/23/23 05:45 D/C Instructions Discharge Diet: No restrictions May resume sexual activity in: 6 weeks Ice area for (Minutes): 15 Weight Bearing Status: Weight bearing as tolerated Call your doctor if your incision/area has: Continuous Slow Oozing, Sudden Increased Bleeding, Increased Pain/ Swelling, Increased Redness, Foul Smelling Discharge and Swelling at the incision site Call your doctor if you observe: Fever of 101 or Higher, Coldness, Increased Pain, Numbness or Tingling, Change in Color, Inability to urinate, Inability to have a bowel movement, Using more than 1 pad per hour, Shortness of breath, Dizziness, Fainting spells, Swelling in the ankles, Chest pain, Prolonged hiccupping, Increased palpitations (irregular heartbeat), Calf discomfort and Uncontrolled pain Suture Line Care: Avoid Pulling/Pushing and Avoid Pinching/Bending Cleanse incision/area with: Soap & Water Please Follow Up With: Nelida Maxwell DO When: 1 week for incision check 6 week visit Meaningful Use Info Meaningful Use Diagnoses (Choose all that apply): None applicable Discharge Plan Admission Admit Date/Time: 08/22/23 09:45 Primary Reason for Your Visit: delivery Attending Provider: Nelida Maxwell Primary Care Provider: Maksim PhysicianMinnie Primary Instructions Patient Instructions: After a Discharge Orders/Prescriptions Prescriptions: New oxycodone-acetaminophen [Percocet] 5-325 mg tablet 1 tab PO Q6H PRN (Reason: pain) 7 Days Qty: 10 0RF ibuprofen 600 mg tablet 600 mg PO Q6H PRN (Reason: pain) Qty: 30 0RF docusate sodium [Colace] 100 mg capsule 100 mg PO DAILY Qty: 30 0RF ferrous sulfate 325 mg (65 mg iron) tablet,delayed release (DR/EC) 325 mg PO QODAY Qty: 20 0RF Continued PNV cmb#95-ferrous fumarate-FA [] 28 mg iron- 800 mcg tablet 1 tab PO DAILY Referrals / Follow Up: Care Physician,No Primary [Primary Care Provider] - Disposition Disposition (needs filled in before D/C Order can be placed): Home, Self Care
== END 2023-08-24 09:30 | disposition home or self-care (01) | DRG 788 ==
PROVIDERS: Obstetrics & Gynecology; Admitting Provider Obstetrics & Gynecology; Visit Provider Obstetrics & Gynecology
PROC: 10D00Z1 Extraction of Products of Conception, Low, Open Approach (ICD-10-PCS; CPT 59514; principal; 2023-08-22 11:45)
DX: O32.1XX0 Maternal care for breech presentation, not applicable or unspecified (principal); O99.214 Obesity complicating childbirth; O69.89X0 Labor and delivery complicated by other cord complications, not applicable or unspecified; Z37.0 Single live birth; Z3A.39 39 weeks gestation of pregnancy
CPT/HCPCS: 59025; 59050; 85025; 85027; 86780; 86850; 86900; 86901; 99221; J7120; A4216; G0378; J2405